=== PATIENT | male | born 1965 | race American Indian/Alaskan Native ===

== ENCOUNTER 2019-06-10 10:23 | Inpatient (IN) | payer OTHER ==
[2019-06-10] MEDS ORDERED: SODIUM CHLORIDE 0.9% 1000 ML IV SOLN IV ONE (11:43)
[2019-06-10] MEDS ORDERED: MORPHINE 4 MG/1 ML INJ IV ONE (11:51)
[2019-06-10] MEDS ORDERED: ONDANSETRON 4 MG/2 ML INJ IV ONE (11:51)
--- NOTE | 2019-06-10 12:22 | Emergency Department Report ---
ED Extremity Problem HPI - General Chief complaint: Extremity Injury, Lower Stated complaint: LT FOOT ULCER/SWELLING Time Seen by Provider: 06/10/19 11:42 Source: patient Mode of arrival: Ambulatory Limitations: No Limitations - History of Present Illness Initial comments: 53-year-old -[place] male presents to the emergency room for wound of his left foot that started 2 months ago. Patient reports that he has gotten better and now it is worse again in the last few days. Patient states that he is a diabetic but does not have a primary care provider and has been just going to the pharmacy getting his insulin 70/30. Patient reports that he takes 30 units in a.m. and 20 units at night. Patient reports he does not have a primary care provider currently on no other medications. Patient denies any nausea vomiting but admits to low-grade fever and pain at 7 out of 10. Patient denies any chest pain shortness of breath. MD Complaint: extremity pain - Related Data Allergies Allergy/AdvReac Type Severity Reaction Status Date / Time No Known Allergies Allergy Unverified 06/10/19 10:24 ED Review of Systems ROS: Stated complaint: LT FOOT ULCER/SWELLING Other details as noted in HPI ED Past Medical Hx - Past Medical History Hx Diabetes: Yes - Social History Smoking Status: Never Smoker Substance Use Type: None ED Physical Exam - General Limitations: No Limitations General appearance: alert, in no apparent distress - Head Head exam: Present: atraumatic, normocephalic - Eye Eye exam: Present: normal appearance - ENT ENT exam: Present: mucous membranes moist ED Course Vital Signs 06/10/19 06/10/19 10:29 12:32 Temperature 99.6 F 98.2 F Pulse Rate 100 H 104 H Respiratory 20 17 Rate Blood Pressure 161/96 Blood Pressure 174/101 [Left] O2 Sat by Pulse 96 100 Oximetry ED Medical Decision Making - Lab Data Result diagrams: 06/10/19 11:43 06/10/19 11:42 Laboratory Tests 06/10/19 06/10/19 06/10/19 11:42 11:43 14:19 WBC 11.5 H RBC 4.24 Hgb 13.0 Hct 36.7 MCV 87 MCH 31 MCHC 35 H RDW 12.8 L Plt Count 310 Lymph % (Auto) 14.9 Blackford % (Auto) 7.2 Eos % (Auto) 1.0 Baso % (Auto) 0.7 Lymph # 1.7 Blackford # 0.8 Eos # 0.1 Baso # 0.1 Seg Neutrophils % 76.2 H Seg Neutrophils # 8.7 H ESR 74 Sodium 133 L Potassium 4.4 Chloride 94.1 L Carbon Dioxide 23 Anion Gap 20 BUN 14 Creatinine 0.9 Estimated GFR > 60 BUN/Creatinine Ratio 16 Glucose 313 H Lactic Acid 1.40 Calcium 9.3 Total Bilirubin 0.80 AST 21 ALT 21 Alkaline Phosphatase 105 Total Protein 7.0 Albumin 3.4 L Albumin/Globulin Ratio 0.9 - Radiology Data Radiology results: report reviewed Patient: FLACO WILDER MR#: [id number] : 1965 Acct:[id number] Age/Sex: 53 / M ADM Date: 06/10/19 Loc: ED Attending Dr: Ordering Physician: PIERRE KIM Date of Service: 06/10/19 Procedure(s): XR foot 3+V LT Accession Number(s): [id number] cc: PIERRE KIM Fluoro Time In Minutes: LEFT FOOT 3 VIEWS INDICATION / CLINICAL INFORMATION: Diabetic wound of left foot. COMPARISON: None available. FINDINGS: BONES and JOINT(S): No acute fracture or subluxation. 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 No destructive bony changes are identified. SOFT TISSUES: Wounds are seen along the first and fifth toes with associated edema. There is mild edema dorsally along the foot. ADDITIONAL FINDINGS: None. IMPRESSION: Left foot findings as above without radiographic evidence of osteomyelitis. Signer Name: Chuck Small MD Signed: 06/10/2019 12:21 PM Workstation Name: [id number] Transcribed By: BLANCO Dictated By: Chuck Small MD Electronically Authenticated By: Chuck Small MD Signed Date/Time: 06/10/19 1221 DD/ 1220 TD/TT: - Medical Decision Making 53-year-old -[place] male presents to the emergency room for wound of his left foot that started 2 months ago. Patient reports that he has gotten better and now it is worse again in the last few days. Patient states that he is a diabetic but does not have a primary care provider and has been just going to the pharmacy getting his insulin 70/30. Patient reports that he takes 30 units in a.m. and 20 units at night. Patient reports he does not have a primary care provider currently on no other medications. Patient denies any nausea vomiting but admits to low-grade fever and pain at 7 out of 10. Patient denies any chest pain shortness of breath. Sepsis protocol has been placed. Antibiotics were initiated along with IV resuscitation X-ray of left foot Spoke to Dr. Kaplan supervising physician came to bedside to evaluate patient. Discussed case with Dr. Tinsley for admission criteria Discussed case with Dr. Dai general surgeon she recommends patient to be admitted for debridement antibiotic therapy diabetes control Critical care attestation.: If time is entered above; I have spent that time in minutes in the direct care of this critically ill patient, excluding procedure time. ED Disposition Clinical Impression: Diabetic foot infection, Peripheral neuropathy Diabetic foot ulcers Qualifiers: Diabetic foot ulcer location: toe Diabetes mellitus type: type 2 Laterality: left Non-pressure ulcer stage: unspecified non-pressure ulcer stage Qualified Code(s): E11.621 - Type 2 diabetes mellitus with foot ulcer; L97.529 - Non- pressure chronic ulcer of other part of left foot with unspecified severity Hypertension Qualifiers: Hypertension type: essential hypertension Qualified Code(s): I10 - Essential (primary) hypertension Uncontrolled diabetes mellitus Qualifiers: Diabetes mellitus type: type 2 Glycemic state: with hyperglycemia Qualified Code(s): E11.65 - Type 2 diabetes mellitus with hyperglycemia Hyperglycemia due to type 2 diabetes mellitus Qualifiers: Diabetes mellitus prison insulin use: with prison use Qualified Code(s): E11.65 - Type 2 diabetes mellitus with hyperglycemia; Z79.4 - termite exterminator (current) use of insulin Disposition: OP ADMIT IP TO THIS HOSP Is pt being admited?: Yes Does the pt Need Aspirin: Yes Condition: Stable Instructions: Diabetes Mellitus Type 2 in Adults (ED), Hypertension (ED)
--- NOTE | 2019-06-10 12:26 | XRay Report ---
LEFT FOOT 3 VIEWS INDICATION / CLINICAL INFORMATION: Diabetic wound of left foot. COMPARISON: None available. FINDINGS: BONES and JOINT(S): No acute fracture or subluxation. Mild osteoarthritis is noted along the mid foot . No destructive bony changes are identified. SOFT TISSUES: Wounds are seen along the first and fifth toes with associated edema. There is mild ingris ma dorsally along the foot. ADDITIONAL FINDINGS: None. IMPRESSION: Left foot findings as above without radiographic evidence of osteomyelitis. Signer Name: Chuck Small MD Signed: 06/10/2019 12:21 PM Workstation Name: [id number]
[2019-06-10 12:40] LABS: Basophils # (Auto) 0.1 K/mm3 (0.0-0.1); Basophils % (Auto) 0.7 % (0.0-1.8); Eosinophils # (Auto) 0.1 K/mm3 (0.0-0.4); Hematocrit 36.7 % (35.5-45.6); Lymphocytes # (Auto) 1.7 K/mm3 (1.2-5.4); Lymphocytes % (Auto) 14.9 % (13.4-35.0); Mean Corpuscular HGB Conc 35 % (32-34); Mean Corpuscular Volume 87 fl (84-94); Monocytes # (Auto) 0.8 K/mm3 (0.0-0.8); Monocytes % (Auto) 7.2 % (0.0-7.3); Platelet Count 310 K/mm3 (140-440); Red Blood Count 4.24 M/mm3 (3.65-5.03); Red Cell Distribution Width 12.8 % (13.2-15.2)
[2019-06-10 12:53] LABS: Alanine Aminotransferase 21 units/L (7-56); Albumin 3.4 g/dL (3.9-5); BUN/Creatinine Ratio 16; Blood Urea Nitrogen 14 mg/dL (9-20); Calcium 9.3 mg/dL (8.4-10.2); Hemolysis Index 69
[2019-06-10 13:07] LABS: Erythrocyte Sedimentation Rate 74 mm/Hr (0-20)
--- NOTE | 2019-06-10 14:25 | Event Note ---
Date of service: 06/10/19 Face to Face: For this encounter I have reviewed the PA/RECONCILIATION MACHINE OPERATOR documentation, treatment plan, medical decision making, and I had face to face time with this patient. Diabetic foot infection Admit to hospital for further management
[2019-06-10] MEDS ORDERED: ALBUTEROL 2.5 MG/3 ML NEBU IH PRN (15:01)
--- NOTE | 2019-06-10 15:01 | History and Physical Report ---
History of Present Illness Chief complaint: My left foot has been giving me problems History of present illness: 53 YO Male with Obesity,DM, HTN, Medication Noncompliance presents to ED for evaluation. Patient states that he has experienced pain and swelling to his left foot and lower leg over the past 2 months with worsening symptoms over the past week and acutely worsening symptoms over the past 2 days. Patient states his pain is currently 7/10, constant, worse with ambulation, associated with swelling, redness, and tenderness. Patient is lost to outpatient follow-up and is noncompliant with medication. Patient transported to [facility] via private vehicle for further evaluation and care. Patient seen and evaluated in the emergency department and found to have systemic inflammatory response syndrome, left lower extremity cellulitis, and suspected diabetic foot infection, and hyponatremia. Patient treated with empiric IV antibiotic therapy. Surgery team consulted in ED. Patient placed in observation status and admitted to surgical floor. Patient pending wound debridement as per surgical team. Patient denies fever, chills, chest pain, palpitations, productive cough, skin rash, hemoptysis, recent ill contacts. No prior admission for review. No medication listed at time of admission for reconciliation. Past History Past Medical History: diabetes, hypertension, other (See HPI) Past Surgical History: Other (Left foot debridement) Social history: single. denies: smoking, alcohol abuse, prescription drug abuse Family history: diabetes, hypertension Medications and Allergies Allergies Allergy/AdvReac Type Severity Reaction Status Date / Time No Known Allergies Allergy Unverified 06/10/19 10:24 Home Medications Medication Instructions Recorded Confirmed Last Taken Type NovoLIN 70/30 20 units SQ QPM 06/10/19 06/10/19 Unknown History NovoLIN 70/30 30 units SQ QAM 06/10/19 06/10/19 Unknown History Review of Systems Constitutional: no weight loss, no weight gain, no fever, no chills Ears, nose, mouth and throat: no ear pain, no ear discharge, no tinnitis, no decreased hearing, no nose pain, no nasal congestion Cardiovascular: no chest pain, no orthopnea, no palpitations, no rapid/irregular heart beat Respiratory: no cough, no cough with sputum, no hemoptysis, no shortness of breath Gastrointestinal: no nausea, no vomiting, no diarrhea, no constipation Genitourinary Male: no hematuria, no flank pain, no discharge, no urinary frequency, no urinary hesitancy Rectal: no pain, no incontinence, no bleeding Musculoskeletal: no neck pain, no shooting arm pain, no arm numbness/tingling, no low back pain, no shooting leg pain Integumentary: no rash, no pruritis, no redness, no sores, no wounds Neurological: no paralysis, no weakness, no parathesias, no numbness, no tingling, no seizures Psychiatric: no anxiety, no memory loss, no change in sleep habits, no insomnia, no hypersomnia, no change in appetite, no change in libido (Hospitalist) Endocrine: no cold intolerance, no heat intolerance, no polyphagia, no excessive thirst, no polydipsia, no nocturia Hematologic/Lymphatic: no easy bruising, no easy bleeding, no lymphadenopathy, no lymphedema Allergic/Immunologic: no urticaria, no allergic rhinitis, no anaphylaxis (Call me about this is totally fine just) Exam - Constitutional Vitals: Temp Pulse Resp BP Pulse Ox 98.2 F 104 H 17 174/101 100 06/10/19 12:32 06/10/19 12:32 06/10/19 12:32 06/10/19 12:32 06/10/19 12:32 General appearance: Present: mild distress, obese - EENT Eyes: Present: PERRL ENT: hearing intact, clear oral mucosa - Neck Neck: Present: supple, normal ROM - Respiratory Respiratory effort: normal Respiratory: bilateral: CTA - Cardiovascular Heart Sounds: Present: S1 & S2. Absent: rub, click - Extremities Extremities: pulses symmetrical Extremity abnormal: edema, ulceration, erythema Peripheral Pulses: within normal limits - Abdominal General gastrointestinal: Present: soft, non-tender, non-distended, normal bowel sounds Male genitourinary: Present: normal - Integumentary Integumentary: Present: clear, warm, dry - Musculoskeletal Musculoskeletal: gait normal, strength equal bilaterally - Psychiatric Psychiatric: appropriate mood/affect, intact judgment & insight - Neurologic Neurologic: CNII-XII intact, moves all extremities Results - Labs CBC & Chem 7: 06/10/19 11:43 06/10/19 11:42 Labs: Abnormal lab results 06/10/19 06/10/19 Range/Units 11:42 11:43 WBC 11.5 H (4.5-11.0) K/mm3 MCHC 35 H (32-34) % RDW 12.8 L (13.2-15.2) % Seg Neutrophils % 76.2 H (40.0-70.0) % Seg Neutrophils # 8.7 H (1.8-7.7) K/mm3 Sodium 133 L (137-145) mmol/L Chloride 94.1 L (98-107) mmol/L Glucose 313 H (75-100) mg/dL Albumin 3.4 L (3.9-5) g/dL Assessment and Plan - Patient Problems (1) Diabetic foot infection Current Visit: Yes Status: Acute Plan to address problem: IV antibiotic therapy with Zosyn and vancomycin, wound care, surgery team consulted, supportive care. (2) Noncompliance Current Visit: Yes Status: Acute Plan to address problem: Patient counseled regarding compliance with diabetic diet, medication, and wound care. Patient acknowledges understanding of risk of worsening symptoms limb loss, organ failure and subsequent if patient continues further noncompliance. (3) Hypertension Current Visit: Yes Status: Acute Qualifiers: Hypertension type: essential hypertension Qualified Code(s): I10 - Essential (primary) hypertension Plan to address problem: Monitor blood pressure every shift, supportive care, continue medical management. (4) Cellulitis Current Visit: Yes Status: Acute Qualifiers: Site of cellulitis: extremity Site of cellulitis of extremity: lower extremity Laterality: left Qualified Code(s): L03.116 - Cellulitis of left lower limb Plan to address problem: X-ray, IV fluid resuscitation therapy, IV antibiotic therapy, CBC, wound care, wound culture. (5) SIRS (systemic inflammatory response syndrome) Current Visit: Yes Status: Acute Plan to address problem: IV antibiotic therapy, CBC, CMP, IV fluid resuscitation therapy, chest x-ray, urinalysis (6) DVT prophylaxis Current Visit: Yes Status: Acute Plan to address problem: Supportive care, prophylactic heparin, SCD to lower extremities while in bed.
[2019-06-10] MEDS ORDERED: ASPIRIN 81 MG TAB CHEW PO ONE (15:08)
[2019-06-10] MEDS ORDERED: VANCOMYCIN 1,750 MG in SODIUM CHLORIDE 0.9% 500 ML 500 ML IV ONE (15:13)
--- NOTE | 2019-06-10 15:20 | Consultation ---
History of Present Illness Consult date: 06/10/19 Reason for consult: other (Left toe ulcer) Chief complaint: Left toe ulcer - History of present illness History of present illness: 53-year-old male with a past medical history of diabetes on insulin for the last 20 years presents to the emergency room with 2 weeks of worsening redness swelling of his left foot along with worsening of a known wound of his left pinky toe. The patient states that last month he was seen by a helicopter repairer in [place] for calluses near his great toe. He states that the calluses were operated on and at that time his pinky toe wound did not appear advanced. Since then, there is been more drainage and a foul odor from the pinky toe. He states that he has had a wound on his forefoot on the left side before which healed with local wound care. He denies fevers, chills, chest pain, shortness of breath. He admits to neuropathy. Past History Past Medical History: diabetes Past Surgical History: Other (Left ear surgery, debridement of left foot wounds) Social history: no significant social history, Family history: no significant family history Medications and Allergies Allergies Allergy/AdvReac Type Severity Reaction Status Date / Time No Known Allergies Allergy Unverified 06/10/19 10:24 Active Meds: Active Medications Acetaminophen (Tylenol) 650 mg PO Q4H PRN PRN Reason: Pain MILD(1-3)/Fever >100.5/TEAGUE Albuterol (Proventil) 2.5 mg IH Q4HRT PRN PRN Reason: Shortness Of Breath Sodium Chloride (Nacl 0.9% 1000 Ml) 1,000 mls @ 100 mls/hr IV DIRECT MELLISSA Vancomycin HCl 1,750 mg/ (Sodium Chloride) 535 mls @ 333 mls/hr IV ONCE ONE; Protocol Stop: 06/10/19 16:49 Piperacillin Sod/Tazobactam Sod (Zosyn/Ns 4.5gm/100ml) 4.5 gm in 100 mls @ 200 mls/hr IV Q8HR MELLISSA; Protocol Sodium Chloride (Sodium Chloride Flush Syringe 10 Ml) 10 ml IV BID MELLISSA Sodium Chloride (Sodium Chloride Flush Syringe 10 Ml) 10 ml IV PRN PRN PRN Reason: LINE FLUSH Review of Systems All systems: negative (10 point review of systems was performed and negative except for that listed in HPI) Exam Vital Signs Temp Pulse Resp BP Pulse Ox 99.6 F 100 H 20 161/96 96 06/10/19 10:29 06/10/19 10:29 06/10/19 10:06/10/19 10:06/10/19 10:29 Narrative exam: General: Awake, alert, oriented x3. No apparent distress ENT: No scleral icterus or conjunctival pallor CV: S1, S2 present Respiratory: No audible wheezes Extremities: Right lower extremity without clubbing, cyanosis, edema, wounds. Left foot with cellulitis of the forefoot extending to the ankle. There is 4+ pitting edema. The patient senses touch however cannot differentiate between sh john and dull. No crepitus. No tenderness to palpation. Distal pulses cannot be palpated due to the edema. There is desquamating skin on the plantar aspect of the foot near the toes. This was easily peeled off and removed. The underlying tissue is healthy, red. There is an extensive ulcer of the pinky toe on the left. The wound bed has minimal slough. Although bone is not visible, it is palpable. The wounds were covered with 4 x 4 gauze and ABD pad, and wrapped with Kerlix. Results - Labs 06/10/19 11:43 06/10/19 11:42 Abnormal lab results 06/10/19 06/10/19 Range/Units 11:42 11:43 WBC 11.5 H (4.5-11.0) K/mm3 MCHC 35 H (32-34) % RDW 12.8 L (13.2-15.2) % Seg Neutrophils % 76.2 H (40.0-70.0) % Seg Neutrophils # 8.7 H (1.8-7.7) K/mm3 Sodium 133 L (137-145) mmol/L Chloride 94.1 L (98-107) mmol/L Glucose 313 H (75-100) mg/dL Albumin 3.4 L (3.9-5) g/dL Diabetes panel 06/10/19 Range/Units 11:42 Sodium 133 L (137-145) mmol/L Potassium 4.4 (3.6-5.0) mmol/L Chloride 94.1 L (98-107) mmol/L Carbon Dioxide 23 (22-30) mmol/L BUN 14 (9-20) mg/dL Creatinine 0.9 (0.8-1.5) mg/dL Glucose 313 H (75-100) mg/dL Calcium 9.3 (8.4-10.2) mg/dL AST 21 (5-40) units/L ALT 21 (7-56) units/L Alkaline Phosphatase 105 (35-129) units/L Total Protein 7.0 (6.3-8.2) g/dL Albumin 3.4 L (3.9-5) g/dL Calcium panel 06/10/19 Range/Units 11:42 Calcium 9.3 (8.4-10.2) mg/dL Albumin 3.4 L (3.9-5) g/dL Pituitary panel 06/10/19 Range/Units 11:42 Sodium 133 L (137-145) mmol/L Potassium 4.4 (3.6-5.0) mmol/L Chloride 94.1 L (98-107) mmol/L Carbon Dioxide 23 (22-30) mmol/L BUN 14 (9-20) mg/dL Creatinine 0.9 (0.8-1.5) mg/dL Glucose 313 H (75-100) mg/dL Calcium 9.3 (8.4-10.2) mg/dL Adrenal panel 06/10/19 Range/Units 11:42 Sodium 133 L (137-145) mmol/L Potassium 4.4 (3.6-5.0) mmol/L Chloride 94.1 L (98-107) mmol/L Carbon Dioxide 23 (22-30) mmol/L BUN 14 (9-20) mg/dL Creatinine 0.9 (0.8-1.5) mg/dL Glucose 313 H (75-100) mg/dL Calcium 9.3 (8.4-10.2) mg/dL Total Bilirubin 0.80 (0.1-1.2) mg/dL AST 21 (5-40) units/L ALT 21 (7-56) units/L Alkaline Phosphatase 105 (35-129) units/L Total Protein 7.0 (6.3-8.2) g/dL Albumin 3.4 L (3.9-5) g/dL - Imaging Additional studies: X-ray left foot Assessment and Plan 53-year-old male with 1. Infected diabetic wound of left pinky toe 2. Diabetes 3. Cellulitis of left foot 4. Sepsis secondary to #1 Plan: 1. diabetic diet 2. IVF 3. IV abx - zosyn and vanco 4. obtain wound cultures 5. wound care consult 6. arterial u/s of LLE 7. MRI LLE to r/o osteo 8. local wound care 9. offloading I had a detailed discussion with the patient and his at the bedside regarding his condition. I explained that based on the findings of the above imaging and his clinical course, there is a possibility that he may need further debridement of the wound versus amputation of his toe. He understands. Thank you for the consultation, please call with questions or concerns.
[2019-06-10] MEDS ORDERED: VANCOMYCIN PHARMACY TO DOSE IV SCH (16:00)
[2019-06-10] MEDS ORDERED: VANCOMYCIN 2,000 MG in SODIUM CHLORIDE 0.9% 500 ML 500 ML IV ONE (16:00)
[2019-06-10] MEDS ORDERED: ASPIRIN 81 MG TAB CHEW ONE (18:04)
--- NOTE | 2019-06-10 18:12 | Magnetic Resonance Report ---
MRI left foot with and without contrast HISTORY: diabetic toe ulcer, r/o osteo. TECHNIQUE: 20 mL of MultiHance was given intravenously. COMPARISON: Left foot radiographs from today FINDINGS: There is abnormal edema and low T1 signal involving the majority of the little toe extendi ng nearly to the base of the proximal phalanx. There is also mild edema involving the distal one nae f of the fourth toe proximal phalanx. There is soft tissue swelling about the forefoot especially wit hin the deep musculature and along the dorsum. No organized collection is identified to suggest absce ss formation. IMPRESSION: Findings of osteomyelitis and probable cellulitis as outlined above. No abscess identifi ed. Signer Name: Hai Rodriguez MD Signed: 06/10/2019 6:07 PM Workstation Name: [id number]
--- NOTE | 2019-06-10 18:46 | Vascular Lab Report ---
DUPLEX DOPPLER LOWER EXTREMITY ARTERIAL, LEFT INDICATION: diabetic toe wound. TECHNIQUE: Arterial duplex examination of the left lower extremity performed using B-mode, color flow and spectr al Doppler assessment. FINDINGS: LEFT: Common Femoral Artery: PSV 168 cm/sec. Triphasic waveform. Proximal SFA: PSV 156 cm/sec. Triphasic waveform. Mid SFA: PSV 113 cm/sec. Triphasic waveform. Distal SFA: PSV 100 cm/sec. Triphasic waveform. Popliteal artery: PSV 112 cm/sec. Biphasic waveform. Posterior tibial artery: PSV 141 cm/sec. Biphasic waveform. Dorsalis Pedis Artery: PSV 155 cm/sec. Biphasic waveform. IMPRESSION: 1. Mild atherosclerotic disease in the left lower extremity with stenosis in the distal SFA where the re is a transition from triphasic to biphasic waveforms. Doppler Waveform: * Triphasic is normal. * Biphasic is abnormal if clear transition from triphasic signal along vascular tree. * Monophasic is abnormal. Signer Name: Hai Rodriguez MD Signed: 06/10/2019 6:42 PM [id number]
[2019-06-10] MEDS: PIPERACIL/TAZOBACTA 4.5/NS 100 4.5 GM/100 ML VIAL IV SCH (22:47)
[2019-06-10] MEDS: HEPARIN 5,000 UNIT/1 ML VIAL SUB-Q SCH (22:49)
[2019-06-11] MEDS: SODIUM CHLORIDE 0.9% 1000 ML 1,000 ML IV SCH ×2 (00:44→20:20)
[2019-06-11] MEDS: VANCOMYCIN 1,750 MG in SODIUM CHLORIDE 0.9% 500 ML 500 ML IV SCH ×2 (04:55→15:42)
[2019-06-11] MEDS: PIPERACIL/TAZOBACTA 4.5/NS 100 4.5 GM/100 ML VIAL IV SCH ×2 (06:24→13:50)
[2019-06-11 06:34] LABS: Basophils % (Auto) 0.2 % (0.0-1.8); Eosinophils # (Auto) 0.1 K/mm3 (0.0-0.4); Eosinophils % (Auto) 1.5 % (0.0-4.3); Hematocrit 34.8 % (35.5-45.6); Lymphocytes # (Auto) 1.4 K/mm3 (1.2-5.4); Lymphocytes % (Auto) 17.5 % (13.4-35.0); Mean Corpuscular HGB Conc 34 % (32-34); Mean Corpuscular Volume 88 fl (84-94); Monocytes # (Auto) 0.6 K/mm3 (0.0-0.8); Monocytes % (Auto) 7.7 % (0.0-7.3); Platelet Count 300 K/mm3 (140-440); Red Blood Count 3.95 M/mm3 (3.65-5.03)
[2019-06-11 07:00] LABS: BUN/Creatinine Ratio 11; Blood Urea Nitrogen 10 mg/dL (9-20); Calcium 8.6 mg/dL (8.4-10.2); Hemolysis Index 7; Prealbumin 0.075 g/L (0.200-0.400)
[2019-06-11] MEDS: HEPARIN 5,000 UNIT/1 ML VIAL SUB-Q SCH ×2 (10:42→22:01)
--- NOTE | 2019-06-11 10:50 | Progress Note ---
Assessment and Plan 53-year-old male with 1. Infected diabetic wound of left pinky toe 2. Diabetes 3. Cellulitis of left foot 4. Sepsis secondary to #1 5. protein calorie malnutrition MRI LLE - osteomyelitis of 5th toe. Cellulitis. No abscess Arterial u/s LLE - mild atherosclerotic disease Plan: 1. diabetic diet 2. IVF 3. IV abx, ID consulted - Discussed with Dr. Terry 4. obtain wound cultures 5. wound care consult 6. HbAIC 7. livestock producer consult 8. local wound care - orders placed 9. offloading 10. Discussed test results with patient. Explained the options of continued aggressive wound care and lobsterman IV abx vs amputation of toe. Patient would like to proceed with amputation. Dr. Little consulted - will see patient today. Thank you for the consultation, please call with questions or concerns. Subjective Date of service: 06/11/19 Narrative: Pt seen and examined. No acute complaints. Afebrile. No pain. Objective Vital Signs - 12hr 06/11/19 06/11/19 06/11/19 00:34 04:51 06:37 Temperature 99.3 F 99.8 F H Pulse Rate 96 H 92 H Respiratory 18 17 18 Rate Blood Pressure 119/70 128/85 Blood Pressure [Left] O2 Sat by Pulse 93 93 Oximetry 06/11/19 07:40 Temperature 99.4 F Pulse Rate 100 H Respiratory 20 Rate Blood Pressure Blood Pressure 151/82 [Left] O2 Sat by Pulse 95 Oximetry - General physical appearance Narrative Exam: Gen: AAOx3. NAD CV: s1, S2+ resp: even and unlabored Ext: LLE with dressing c/d/i. RLE without c/c/e - Labs 06/11/19 06:01 06/11/19 06:01 Diabetes panel 06/10/19 06/11/19 Range/Units 11:42 06:01 Sodium 133 L 134 L (137-145) mmol/L Potassium 4.4 3.9 (3.6-5.0) mmol/L Chloride 94.1 L 100.1 (98-107) mmol/L Carbon Dioxide 23 21 L (22-30) mmol/L BUN 14 10 (9-20) mg/dL Creatinine 0.9 0.9 (0.8-1.5) mg/dL Glucose 313 H 280 H (75-100) mg/dL Calcium 9.3 8.6 (8.4-10.2) mg/dL AST 21 (5-40) units/L ALT 21 (7-56) units/L Alkaline Phosphatase 105 (35-129) units/L Total Protein 7.0 (6.3-8.2) g/dL Albumin 3.4 L (3.9-5) g/dL Calcium panel 06/10/19 06/11/19 Range/Units 11:42 06:01 Calcium 9.3 8.6 (8.4-10.2) mg/dL Albumin 3.4 L (3.9-5) g/dL Pituitary panel 06/10/19 06/11/19 Range/Units 11:42 06:01 Sodium 133 L 134 L (137-145) mmol/L Potassium 4.4 3.9 (3.6-5.0) mmol/L Chloride 94.1 L 100.1 (98-107) mmol/L Carbon Dioxide 23 21 L (22-30) mmol/L BUN 14 10 (9-20) mg/dL Creatinine 0.9 0.9 (0.8-1.5) mg/dL Glucose 313 H 280 H (75-100) mg/dL Calcium 9.3 8.6 (8.4-10.2) mg/dL Adrenal panel 06/10/19 06/11/19 Range/Units 11:42 06:01 Sodium 133 L 134 L (137-145) mmol/L Potassium 4.4 3.9 (3.6-5.0) mmol/L Chloride 94.1 L 100.1 (98-107) mmol/L Carbon Dioxide 23 21 L (22-30) mmol/L BUN 14 10 (9-20) mg/dL Creatinine 0.9 0.9 (0.8-1.5) mg/dL Glucose 313 H 280 H (75-100) mg/dL Calcium 9.3 8.6 (8.4-10.2) mg/dL Total Bilirubin 0.80 (0.1-1.2) mg/dL AST 21 (5-40) units/L ALT 21 (7-56) units/L Alkaline Phosphatase 105 (35-129) units/L Total Protein 7.0 (6.3-8.2) g/dL Albumin 3.4 L (3.9-5) g/dL
[2019-06-11] MEDS ORDERED: FLU VACC QUAD 2019-20 (3 YR UP)/PF 60 MCG/0.5 ML SYRINGE IM ONE (12:00)
--- NOTE | 2019-06-11 13:34 | Progress Note ---
Assessment and Plan Assessment and plan: Left lower extremity fifth MT infected diabetic wound/osteomyelitis. Continue wound care. IV antibiotics per ID. MRI confirms osteomyelitis of fifth toe. Podiatry consulted for possible amputation. Left lower extremity cellulitis. As above. Sepsis. Continue IV antibiotics as above. Follow-up cultures. Diabetes mellitus type 2, uncontrolled. Check hemoglobin A1c. Dietitian consult. History Interval history: No new issues overnight Hospitalist Physical - Constitutional Vitals: Temp Pulse Resp BP Pulse Ox 99.0 F 93 H 20 145/85 96 06/11/19 11:42 06/11/19 11:42 06/11/19 11:42 06/11/19 11:42 06/11/19 11:42 General appearance: Present: mild distress, obese - EENT Eyes: Present: PERRL, EOM intact ENT: hearing intact, clear oral mucosa, dentition normal - Neck Neck: Present: supple, normal ROM - Respiratory Respiratory effort: normal Respiratory: bilateral: CTA - Cardiovascular Rhythm: regular Heart Sounds: Present: S1 & S2. Absent: gallop, rub - Extremities Extremities: no ischemia, No edema, Full ROM - Abdominal General gastrointestinal: soft, non-tender, non-distended, normal bowel sounds - Integumentary Integumentary: Present: clear, warm, dry - Neurologic Neurologic: CNII-XII intact, moves all extremities Results - Labs CBC & Chem 7: 06/11/19 06:01 06/11/19 06:01 Labs: Laboratory Last Values WBC 7.8 K/mm3 (4.5-11.0) 06/11/19 06: RBC 3.95 M/mm3 (3.65-5.03) 06/11/19 06:01 Hgb 12.0 gm/dl (11.8-15.2) 06/11/19 06:01 Hct 34.8 % (35.5-45.6) L 06/11/19 06:01 MCV 88 fl (84-94) 06/11/19 06:01 MCH 30 pg (28-32) 06/11/19 06:01 MCHC 34 % (32-34) 06/11/19 06:01 RDW 13.0 % (13.2-15.2) L 06/11/19 06:01 Plt Count 300 K/mm3 (140-440) 06/11/19 06:01 Lymph % (Auto) 17.5 % (13.4-35.0) 06/11/19 06:01 Nobles % (Auto) 7.7 % (0.0-7.3) H 06/11/19 06:01 Eos % (Auto) 1.5 % (0.0-4.3) 06/11/19 06:01 Baso % (Auto) 0.2 % (0.0-1.8) 06/11/19 06:01 Lymph # 1.4 K/mm3 (1.2-5.4) 06/11/19 06:01 Nobles # 0.6 K/mm3 (0.0-0.8) 06/11/19 06:01 Eos # 0.1 K/mm3 (0.0-0.4) 06/11/19 06:01 Baso # 0.0 K/mm3 (0.0-0.1) 06/11/19 06:01 Seg Neutrophils % 73.1 % (40.0-70.0) H 06/11/19 06:01 Seg Neutrophils # 5.7 K/mm3 (1.8-7.7) 06/11/19 06:01 ESR 74 mm/Hr (0-20) 06/10/19 11:43 Sodium 134 mmol/L (137-145) L 06/11/19 06:01 Potassium 3.9 mmol/L (3.6-5.0) 06/11/19 06:01 Chloride 100.1 mmol/L (98-107) 06/11/19 06:01 Carbon Dioxide 21 mmol/L (22-30) L 06/11/19 06:01 Anion Gap 17 mmol/L 06/11/19 06:01 BUN 10 mg/dL (9-20) 06/11/19 06:01 Creatinine 0.9 mg/dL (0.8-1.5) 06/11/19 06:01 Estimated GFR > 60 ml/min 06/11/19 06:01 BUN/Creatinine Ratio 11 % 06/11/19 06:01 Glucose 280 mg/dL (75-100) H 06/11/19 06:01 POC Glucose 275 (70-105) H 06/11/19 11:49 Lactic Acid 1.40 mmol/L (0.7-2.0) 06/10/19 14:19 Calcium 8.6 mg/dL (8.4-10.2) 06/11/19 06:01 Total Bilirubin 0.80 mg/dL (0.1-1.2) 06/10/19 11:42 AST 21 units/L (5-40) 06/10/19 11:42 ALT 21 units/L (7-56) 06/10/19 11:42 Alkaline Phosphatase 105 units/L (35-129) 06/10/19 11:42 Total Protein 7.0 g/dL (6.3-8.2) 06/10/19 11:42 Albumin 3.4 g/dL (3.9-5) L 06/10/19 11:42 Albumin/Globulin Ratio 0.9 % 06/10/19 11:42 Prealbumin 0.075 g/L (0.200-0.400) L 06/11/19 06:01 Active Medications - Current Medications Current Medications: Generic Name Dose Route Start Last Admin Trade Name Freq PRN Reason Stop Dose Admin Acetaminophen 650 mg 06/10/19 15:01 Tylenol PO Q4H PRN Pain MILD(1-3)/Fever >100.5/TEAGUE Albuterol 2.5 mg 06/10/19 15:01 Proventil IH Q4HRT PRN Shortness Of Breath Heparin Sodium (Porcine) 5,000 unit 06/10/19 22:00 06/11/19 10:42 Heparin SUB-Q 5,000 unit Q12HR MELLISSA Administration Sodium Chloride 1,000 mls @ 100 mls/hr 06/10/19 15:15 06/11/19 00:44 Nacl 0.9% 1000 Ml IV 100 mls/hr DIRECT MELLISSA Administration Piperacillin Sod/Tazobactam Sod 4.5 gm in 100 mls @ 200 mls/hr 06/10/19 22:00 06/11/19 06:24 Zosyn/Ns 4.5gm/100ml IV 200 mls/hr Q8HR MELLISSA Administration Protocol Vancomycin HCl 1,750 mg/ 535 mls @ 333.333 mls/hr 06/11/19 04:00 06/11/19 04:55 Sodium Chloride IV 333.333 mls/hr Q12H MELLISSA Administration Sodium Chloride 10 ml 06/10/19 22:00 06/11/19 10:45 Sodium Chloride Flush Syringe 10 Ml IV Not Given BID MELLISSA Sodium Chloride 10 ml 06/10/19 15:01 Sodium Chloride Flush Syringe 10 Ml IV PRN PRN LINE FLUSH
--- NOTE | 2019-06-11 13:40 | Consultation ---
History of Present Illness Consult date: 06/11/19 - History of present illness History of present illness: 53 yo diabetic male with left 5th toe ulcer with infection. He does not smoke. Past History Past Medical History: diabetes, hypertension, other (See HPI) Past Surgical History: Other (Left foot debridement) Social history: single. denies: smoking, alcohol abuse, prescription drug abuse Family history: diabetes, hypertension Medications and Allergies Allergies Allergy/AdvReac Type Severity Reaction Status Date / Time No Known Allergies Allergy Unverified 06/10/19 10:24 Home Medications Medication Instructions Recorded Confirmed Last Taken Type NovoLIN 70/30 20 units SQ QPM 06/10/19 06/10/19 Unknown History NovoLIN 70/30 30 units SQ QAM 06/10/19 06/10/19 Unknown History Active Meds: Active Medications Acetaminophen (Tylenol) 650 mg PO Q4H PRN PRN Reason: Pain MILD(1-3)/Fever >100.5/[place] Albuterol (Proventil) 2.5 mg IH Q4HRT PRN PRN Reason: Shortness Of Breath Heparin Sodium (Porcine) (Heparin) 5,000 unit SUB-Q Q12HR [facility] Last Admin: 06/11/19 10:42 Dose: 5,000 unit Documented by: Sodium Chloride (Nacl 0.9% 1000 Ml) 1,000 mls @ 100 mls/hr IV DIRECT [facility] Last Admin: 06/11/19 00:44 Dose: 100 mls/hr Documented by: Piperacillin Sod/Tazobactam Sod (Zosyn/Ns 4.5gm/100ml) 4.5 gm in 100 mls @ 200 mls/hr IV Q8HR [facility]; Protocol Last Admin: 06/11/19 06:24 Dose: 200 mls/hr Documented by: Vancomycin HCl 1,750 mg/ (Sodium Chloride) 535 mls @ 333.333 mls/hr IV Q12H [facility] Last Admin: 06/11/19 04:55 Dose: 333.333 mls/hr Documented by: Sodium Chloride (Sodium Chloride Flush Syringe 10 Ml) 10 ml IV BID [facility] Last Admin: 06/11/19 10:45 Dose: Not Given Documented by: Sodium Chloride (Sodium Chloride Flush Syringe 10 Ml) 10 ml IV PRN PRN PRN Reason: LINE FLUSH Review of Systems All systems: negative (none) Exam Vital Signs Temp Pulse Resp BP Pulse Ox 99.6 F 100 H 20 161/96 96 06/10/19 10:29 06/10/19 10:29 06/10/19 10:06/10/19 10:06/10/19 10:29 - General physical appearance Positive: well developed, well nourished, no distress - Eyes Positive: PERRL, normal occular movement - ENT Positive: normal pinna, normal nares, normal mucosa, no hearing loss, no congestion - Neck Positive: no masses, no bruits, trachea midline, no venous distension - Respiratory Positive: normal expansion, normal respiratory effort, clear to auscultation - Cardiovascular Rhythm: regular Heart Sounds: Present: S1 & S2. Absent: rub, click - Extremities Extremity abnormal: other (The medial 1/2 of the left 5th toe is ulcerated with pus exuding from the ulcerated area. There is also pus exuding from the lateral base of the left 4th toe.) - Breasts Breasts: deferred - Abdomen Abdomen: Present: soft, bowel sounds normal. Absent: tender, distended Hernia: none - Genitourinary Male Genitourinary: deferred - Neurologic Neurologic: alert and oriented to time, place and person, motor strength and sensation are grossly intact - Psychiatric Psychiatric: appropriate mood/affect, intact judgment & insight Results - Labs 06/11/19 06:01 06/11/19 06:01 Abnormal lab results 06/10/19 06/11/19 06/11/19 Range/Units 18:08 06:01 06:01 Hct 34.8 L (35.5-45.6) % RDW 13.0 L (13.2-15.2) % Waldo % (Auto) 7.7 H (0.0-7.3) % Seg Neutrophils % 73.1 H (40.0-70.0) % Sodium 134 L (137-145) mmol/L Carbon Dioxide 21 L (22-30) mmol/L Glucose 280 H (75-100) mg/dL POC Glucose 273 H (70-105) Prealbumin 0.075 L (0.200-0.400) g/L 06/11/19 06/11/19 Range/Units 07:26 11:49 Hct (35.5-45.6) % RDW (13.2-15.2) % Waldo % (Auto) (0.0-7.3) % Seg Neutrophils % (40.0-70.0) % Sodium (137-145) mmol/L Carbon Dioxide (22-30) mmol/L Glucose (75-100) mg/dL POC Glucose 254 H 275 H (70-105) Prealbumin (0.200-0.400) g/L Diabetes panel 06/10/19 06/11/19 Range/Units 11:42 06:01 Sodium 134 L (137-145) mmol/L Potassium 3.9 (3.6-5.0) mmol/L Chloride 100.1 (98-107) mmol/L Carbon Dioxide 21 L (22-30) mmol/L BUN 10 (9-20) mg/dL Creatinine 0.9 (0.8-1.5) mg/dL Glucose 280 H (75-100) mg/dL Calcium 8.6 (8.4-10.2) mg/dL AST 21 (5-40) units/L Calcium panel 06/11/19 Range/Units 06:01 Calcium 8.6 (8.4-10.2) mg/dL Pituitary panel 06/11/19 Range/Units 06:01 Sodium 134 L (137-145) mmol/L Potassium 3.9 (3.6-5.0) mmol/L Chloride 100.1 (98-107) mmol/L Carbon Dioxide 21 L (22-30) mmol/L BUN 10 (9-20) mg/dL Creatinine 0.9 (0.8-1.5) mg/dL Glucose 280 H (75-100) mg/dL Calcium 8.6 (8.4-10.2) mg/dL Adrenal panel 06/10/19 06/11/19 Range/Units 11:42 06:01 Sodium 134 L (137-145) mmol/L Potassium 3.9 (3.6-5.0) mmol/L Chloride 100.1 (98-107) mmol/L Carbon Dioxide 21 L (22-30) mmol/L BUN 10 (9-20) mg/dL Creatinine 0.9 (0.8-1.5) mg/dL Glucose 280 H (75-100) mg/dL Calcium 8.6 (8.4-10.2) mg/dL AST 21 (5-40) units/L - Imaging Additional studies: MRI of LLE on 06/10/19 was c/w osteomyelitis of the left 5th and possibly left 4th toes. Arterial doppler of the LLE on 06/10/19 revealed only mild atherosclerotic disease of the LLE. Assessment and Plan - Patient Problems (1) Diabetic foot infection Current Visit: Yes Status: Acute Plan to address problem: 1) Continue Zosyn and Vancocin 2) Strict DM control 3) I will check with the OR and schedule the pt for TMA of his left 4th and 5th toes.
--- NOTE | 2019-06-11 14:57 | Consultation ---
History of Present Illness - Reason for Consult Consult date: 06/11/19 Osteomyelitis Requesting physician: LEIGH MCDONALD - History of Present Illness The patient is a 53-year-old male with diabetes mellitus type 2, associated neuropathy, hypertension, obesity had been dealing with left foot ulceration and wounds since almost March 2019. He had been following up with an outside manager managed backup services and mid April 2019 he also underwent surgery followed by oral antibiotics for about 15 days. Over the last 1 month, there has been progressive swelling and worsening of the wounds, he tried to follow-up with his manager managed backup services and got an appointment but meanwhile with significant worsening, came to the ER and was hospitalized. MRI shows evidence of osteomyelitis involving the left fifth toe and possibly the fourth toe. Denies any other systemic complaints. Denies smoking or alcohol use. Review of Systems: General: no fevers,chills or rigors HEENT: no new visual disturbance Respiratory: No cough, sputum, hemoptysis or shortness of breath Cardiovascular: No chest pain, syncope Gastrointestinal: No nausea, vomiting or diarrhea Genitourinary: No dysuria or hematuria Musculoskeletal: No new or worsening neck pain or back pain Neurologic: No headaches, seizures Hematologic: No easy bruising or bleeding Endocrine: No night sweats or acute weight loss Skin: negative for rash, jaundice Psychiatric: No suicidal or homicidal ideation Past History Past Medical History: diabetes, hypertension, other (See HPI) Past Surgical History: Other (Left foot debridement) Social history: single. denies: smoking, alcohol abuse, prescription drug abuse Family history: diabetes, hypertension Medications and Allergies Allergies Allergy/AdvReac Type Severity Reaction Status Date / Time No Known Allergies Allergy Unverified 06/10/19 10:24 Home Medications Medication Instructions Recorded Confirmed Last Taken Type NovoLIN 70/30 20 units SQ QPM 06/10/19 06/10/19 Unknown History NovoLIN 70/30 30 units SQ QAM 06/10/19 06/10/19 Unknown History Active Meds: Active Medications Acetaminophen (Tylenol) 650 mg PO Q4H PRN PRN Reason: Pain MILD(1-3)/Fever >100.5/[place] Albuterol (Proventil) 2.5 mg IH Q4HRT PRN PRN Reason: Shortness Of Breath Heparin Sodium (Porcine) (Heparin) 5,000 unit SUB-Q Q12HR [facility] Last Admin: 06/11/19 10:42 Dose: 5,000 unit Documented by: Sodium Chloride (Nacl 0.9% 1000 Ml) 1,000 mls @ 100 mls/hr IV DIRECT [facility] Last Admin: 06/11/19 00:44 Dose: 100 mls/hr Documented by: Piperacillin Sod/Tazobactam Sod (Zosyn/Ns 4.5gm/100ml) 4.5 gm in 100 mls @ 200 mls/hr IV Q8HR [facility]; Protocol Last Admin: 06/11/19 06:24 Dose: 200 mls/hr Documented by: Vancomycin HCl 1,750 mg/ (Sodium Chloride) 535 mls @ 333.333 mls/hr IV Q12H [facility] Last Admin: 06/11/19 04:55 Dose: 333.333 mls/hr Documented by: Sodium Chloride (Sodium Chloride Flush Syringe 10 Ml) 10 ml IV BID [facility] Last Admin: 06/11/19 10:45 Dose: Not Given Documented by: Sodium Chloride (Sodium Chloride Flush Syringe 10 Ml) 10 ml IV PRN PRN PRN Reason: LINE FLUSH Physical Examination - Physical Exam Narrative exam: Physical Exam: Constitutional: Alert, cooperative. No acute distress Head, Ears, Nose: Normocephalic, atraumatic. External ears, nose normal Eyes: Conjunctivae/corneas clear. No icterus. No ptosis. Neck: Supple, no meningeal signs Oral: dentition fair, no thrush Cardiovascular: S1, S2 normal. Respiratory: Good air entry, clear to auscultation bilaterally GI: Soft, non-tender; bowel sounds normal. No peritoneal signs Musculoskeletal: Left leg with swelling, warmth, fourth and fifth toes with wounds that are dressed, no tenderness. Bilateral feet with neuropathy. Skin: No rash or abscess Hem/Lymphatic: No palpable cervical or supraclavicular nodes. No lymphangitis Psych: Mood ok. Affect normal Neurological: Awake, alert, oriented. No gross abnormality - Constitutional Vitals: Vital Signs Temp Pulse Resp BP Pulse Ox 99.0 F 93 H 20 145/85 98 06/11/19 11:42 06/11/19 11:42 06/11/19 11:42 06/11/19 11:42 06/11/19 13:41 Temperature -Last 24 Hours Temperature 99.0 F Temperature 99.4 F Temperature 99.8 F Temperature 99.3 F Temperature 99 F Temperature 97.6 F Results - Labs CBC & Chem 7: 06/11/19 06:01 06/11/19 06:01 Labs: Abnormal lab results 06/10/19 06/11/19 06/11/19 Range/Units 18:08 06:01 06:01 Hct 34.8 L (35.5-45.6) % RDW 13.0 L (13.2-15.2) % Hartley % (Auto) 7.7 H (0.0-7.3) % Seg Neutrophils % 73.1 H (40.0-70.0) % Sodium 134 L (137-145) mmol/L Carbon Dioxide 21 L (22-30) mmol/L Glucose 280 H (75-100) mg/dL POC Glucose 273 H (70-105) Prealbumin 0.075 L (0.200-0.400) g/L 06/11/19 06/11/19 Range/Units 07:26 11:49 Hct (35.5-45.6) % RDW (13.2-15.2) % Hartley % (Auto) (0.0-7.3) % Seg Neutrophils % (40.0-70.0) % Sodium (137-145) mmol/L Carbon Dioxide (22-30) mmol/L Glucose (75-100) mg/dL POC Glucose 254 H 275 H (70-105) Prealbumin (0.200-0.400) g/L Assessment and Plan Cultures: 06/10/2019 blood culture: In process A/P: 53-year-old male with diabetes mellitus type 2, associated neuropathy, hypertension, obesity with longstanding left toe ulcerations and diabetic woun ds, now with: #Left leg cellulitis, left foot with acute osteomyelitis involving the fourth and fifth toes: Empiric antibiotics. Agree with surgical consult and plans for possible amputation. Expect surgical source control given the plans for transmetatarsal amputation of the fourth and fifth toes and MRI findings of osteomyelitis involving the phalanges. #Diabetes mellitus type 2, uncontrolled: Recommend tight glycemic control. Recs: Empiric IV Cefepime, Flagyl and Vancomycin. Maintain vancomycin trough between 10 to 20 mcg/mL Do not expect prolonged antibiotics given plans for surgical source control with amputation Edward Terry MD, FACP [facility] C: [phone] O: [phone] F: [phone]
[2019-06-11] MEDS: CEFEPIME/NS 2 GM/100 ML 2 GM/100 ML BAG IV SCH ×2 (15:45→21:59)
[2019-06-11] MEDS: metroNIDAZOLE/NS 500 MG/100 ML 500 MG/100 ML BAG IV SCH ×2 (18:45→22:01)
[2019-06-11] MEDS: INSULIN LISPRO 100 UNIT/ML SUB-Q SCH (22:34)
[2019-06-12] MEDS: VANCOMYCIN 1,750 MG in SODIUM CHLORIDE 0.9% 500 ML 500 ML IV SCH ×2 (04:39→16:51)
[2019-06-12] MEDS: metroNIDAZOLE/NS 500 MG/100 ML 500 MG/100 ML BAG IV SCH ×3 (06:19→21:34)
[2019-06-12] MEDS: CEFEPIME/NS 2 GM/100 ML 2 GM/100 ML BAG IV SCH ×3 (06:19→21:34)
[2019-06-12] MEDS: INSULIN LISPRO 100 UNIT/ML SUB-Q SCH ×4 (08:39→21:34)
[2019-06-12] MEDS: ACETAMINOPHEN 325 MG TAB PO PRN (08:58)
[2019-06-12] MEDS: HEPARIN 5,000 UNIT/1 ML VIAL SUB-Q SCH ×2 (10:13→21:33)
--- NOTE | 2019-06-12 11:22 | Progress Note ---
Assessment and Plan Cultures: 06/10/2019 blood culture: no growth thus far A/P: 53-year-old male with diabetes mellitus type 2, associated neuropathy, hypertension, obesity with longstanding left toe ulcerations and diabetic wounds , now with: #Left leg cellulitis, left foot with acute osteomyelitis involving the fourth and fifth toes: Empiric antibiotics. Agree with surgical consult and plans for possible amputation. Expect surgical source control given the plans for transmetatarsal amputation of the fourth and fifth toes and MRI findings of osteomyelitis involving the phalanges. #Diabetes mellitus type 2, uncontrolled: Recommend tight glycemic control. Recs: Continue empiric IV Cefepime, Flagyl and Vancomycin. Maintain vancomycin trough between 10 to 20 mcg/mL Do not expect prolonged antibiotics given plans for surgical source control with amputation Edward Terry MD, FACP [facility] C: [phone] O: [phone] F: [phone] Subjective Date of service: 06/12/19 Interval history: No new complaints. Left leg swelling still present. Low grade fever + Objective - Exam Narrative Exam: Physical Exam: Constitutional: Alert, cooperative. No acute distress Head, Ears, Nose: Normocephalic, atraumatic. External ears, nose normal Eyes: Conjunctivae/corneas clear. No icterus. No ptosis. Neck: Supple, no meningeal signs Cardiovascular: S1, S2 normal. Respiratory: Good air entry, clear to auscultation bilaterally GI: Soft, non-tender; bowel sounds normal. No peritoneal signs Musculoskeletal: Left leg with swelling, warmth, fourth and fifth toes with dressing, no tenderness. Skin: No rash or abscess Hem/Lymphatic: No palpable cervical or supraclavicular nodes. No lymphangitis Psych: Mood ok. Affect normal Neurological: Awake, alert, oriented. No gross abnormality. Bilateral feet with neuropathy. - Constitutional Vitals: Vital Signs Temp Pulse Resp BP Pulse Ox 100.7 F H 90 18 152/85 97 06/12/19 08:13 06/12/19 08:13 06/12/19 08:13 06/12/19 08:13 06/12/19 08:13 Temperature -Last 24 Hours Temperature 100.7 F Temperature 99.5 F Temperature 99.4 F Temperature 100.0 F Temperature 99.3 F Temperature 99.0 F - Labs CBC & Chem 7: 06/11/19 06:01 06/11/19 06:01 Labs: Abnormal lab results 06/11/19 06/11/19 06/11/19 Range/Units 11:49 16:39 22:40 POC Glucose 275 H 302 H 298 H (70-105) Hemoglobin A1c (4-6) % 06/12/19 06/12/19 Range/Units 05:16 08:26 POC Glucose 264 H (70-105) Hemoglobin A1c 11.1 H (4-6) %
--- NOTE | 2019-06-12 12:17 | Progress Note ---
Assessment and Plan Assessment and plan: Left lower extremity fifth MT infected diabetic wound/osteomyelitis. Continue wound care. IV antibiotics per ID. MRI confirms osteomyelitis of fifth toe. Podiatry consulted for possible amputation. Left lower extremity cellulitis. As above. Sepsis. Continue IV antibiotics as above. Follow-up cultures. Diabetes mellitus type 2, uncontrolled. Check hemoglobin A1c. Dietitian consult. 06/11podiatry has scheduled for left 4th and 5th toe TMA on 06/14/19 at 12:00. Patient will be continued on IV cefepime, Flagyl and vancomycin. We will maintain vancomycin trough between 10 to 20 mcg/ml History Interval history: No new issues overnight Hospitalist Physical - Constitutional Vitals: Temp Pulse Resp BP Pulse Ox 100.7 F H 90 18 152/85 97 06/12/19 08:13 06/12/19 08:13 06/12/19 08:13 06/12/19 08:13 06/12/19 08:13 General appearance: Present: mild distress, obese - EENT Eyes: Present: PERRL, EOM intact ENT: hearing intact, clear oral mucosa, dentition normal - Neck Neck: Present: supple, normal ROM - Respiratory Respiratory effort: normal Respiratory: bilateral: CTA - Cardiovascular Rhythm: regular Heart Sounds: Present: S1 & S2. Absent: gallop, rub - Extremities Extremities: no ischemia, No edema, Full ROM - Abdominal General gastrointestinal: soft, non-tender, non-distended, normal bowel sounds - Integumentary Integumentary: Present: clear, warm, dry - Neurologic Neurologic: CNII-XII intact, moves all extremities Results - Labs CBC & Chem 7: 06/11/19 06:01 06/11/19 06:01 Labs: Laboratory Last Values WBC 7.8 K/mm3 (4.5-11.0) 06/11/19 06:01 RBC 3.95 M/mm3 (3.65-5.03) 06/11/19 06:01 Hgb 12.0 gm/dl (11.8-15.2) 06/11/19 06:01 Hct 34.8 % (35.5-45.6) L 06/11/19 06:01 MCV 88 fl (84-94) 06/11/19 06:01 MCH 30 pg (28-32) 06/11/19 06:01 MCHC 34 % (32-34) 06/11/19 06:01 RDW 13.0 % (13.2-15.2) L 06/11/19 06:01 Plt Count 300 K/mm3 (140-440) 06/11/19 06:01 Lymph % (Auto) 17.5 % (13.4-35.0) 06/11/19 06:01 [place] % (Auto) 7.7 % (0.0-7.3) H 06/11/19 06:01 Eos % (Auto) 1.5 % (0.0-4.3) 06/11/19 06:01 Baso % (Auto) 0.2 % (0.0-1.8) 06/11/19 06:01 Lymph # 1.4 K/mm3 (1.2-5.4) 06/11/19 06:01 [place] # 0.6 K/mm3 (0.0-0.8) 06/11/19 06:01 Eos # 0.1 K/mm3 (0.0-0.4) 06/11/19 06:01 Baso # 0.0 K/mm3 (0.0-0.1) 06/11/19 06:01 Seg Neutrophils % 73.1 % (40.0-70.0) H 06/11/19 06:01 Seg Neutrophils # 5.7 K/mm3 (1.8-7.7) 06/11/19 06:01 ESR 74 mm/Hr (0-20) 06/10/19 11:43 Sodium 134 mmol/L (137-145) L 06/11/19 06:01 Potassium 3.9 mmol/L (3.6-5.0) 06/11/19 06:01 Chloride 100.1 mmol/L (98-107) 06/11/19 06:01 Carbon Dioxide 21 mmol/L (22-30) L 06/11/19 06:01 Anion Gap 17 mmol/L 06/11/19 06:01 BUN 10 mg/dL (9-20) 06/11/19 06:01 Creatinine 0.9 mg/dL (0.8-1.5) 06/11/19 06:01 Estimated GFR > 60 ml/min 06/11/19 06:01 BUN/Creatinine Ratio 11 % 06/11/19 06:01 Glucose 280 mg/dL (75-100) H 06/11/19 06:01 POC Glucose 231 (70-105) H 06/12/19 11:45 Hemoglobin A1c 11.1 % (4-6) H 06/12/19 05:16 Lactic Acid 1.40 mmol/L (0.7-2.0) 06/10/19 14:19 Calcium 8.6 mg/dL (8.4-10.2) 06/11/19 06:01 Total Bilirubin 0.80 mg/dL (0.1-1.2) 06/10/19 11:42 AST 21 units/L (5-40) 06/10/19 11:42 ALT 21 units/L (7-56) 06/10/19 11:42 Alkaline Phosphatase 105 units/L (35-129) 06/10/19 11:42 Total Protein 7.0 g/dL (6.3-8.2) 06/10/19 11:42 Albumin 3.4 g/dL (3.9-5) L 06/10/19 11:42 Albumin/Globulin Ratio 0.9 % 06/10/19 11:42 Prealbumin 0.075 g/L (0.200-0.400) L 06/11/19 06:01 Active Medications - Current Medications Current Medications: Generic Name Dose Route Start Last Admin Trade Name Freq PRN Reason Stop Dose Admin Acetaminophen 650 mg 06/10/19 15:01 06/12/19 08:58 Tylenol PO 650 mg Q4H PRN Administration Pain MILD(1-3)/Fever >100.5/TEAGUE Albuterol 2.5 mg 06/10/19 15:01 Proventil IH Q4HRT PRN Shortness Of Breath Heparin Sodium (Porcine) 5,000 unit 06/10/19 22:00 06/12/19 10:13 Heparin SUB-Q Not Given Q12HR MELLISSA Sodium Chloride 1,000 mls @ 100 mls/hr 06/10/19 15:15 06/11/19 20:20 Nacl 0.9% 1000 Ml IV 100 mls/hr DIRECT MELLISSA Administration Vancomycin HCl 1,750 mg/ 535 mls @ 333.333 mls/hr 06/11/19 04:00 06/12/19 04:39 Sodium Chloride IV 333.333 mls/hr Q12H MELLISSA Administration Cefepime HCl 2 gm in 100 mls @ 200 mls/hr 06/11/19 15:00 06/12/19 06:19 Cefepime/Ns 2 Gm/100 Ml IV 200 mls/hr Q8HR MELLISSA Administration Protocol Metronidazole 500 mg in 100 mls @ 100 mls/hr 06/11/19 15:00 06/12/19 06:19 Flagyl 500 Mg/100 Ml IV 100 mls/hr Q8HR MELLISSA Administration Protocol Insulin Human Lispro 0 unit 06/11/19 22:00 06/12/19 11:33 Humalog SUB-Q 3 unit ACHS MELLISSA Administration Protocol Sodium Chloride 10 ml 06/10/19 22:00 06/12/19 10:14 Sodium Chloride Flush Syringe 10 Ml IV Not Given BID MELLISSA Sodium Chloride 10 ml 06/10/19 15:01 Sodium Chloride Flush Syringe 10 Ml IV PRN PRN LINE FLUSH Nutrition/Malnutrition Assess - Dietary Evaluation Nutrition/Malnutrition Findings: Nutrition Notes Start: 06/11/19 14:56 Freq: Status: Active Protocol: Document 06/11/19 14:56 LM (Rec: 06/11/19 15:03 LM [email or web address]) Nutrition Notes 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 Pt ate 100% of tray. Pt statred he has gained about 10 lb. Pt stated he was eating BLOCKER HAND but had poor food choices. Provided DM diet education to pt. Pt eager to receive education. Burn Absent Trauma Absent GI Symptoms None Current % PO Good (75-100%) Minimum of two criteria No #2 Nutrition Diagnosis Increased nutrient needs ( specify in comment below) Comments: Protein Etiology wound healing As Evidenced by Signs and Symptoms pt with diabetic foot ulcer #1 Nutrition Diagnosis Food and nutrition-related knowledge deficit Etiology Pt not receiving DM diet education for many years As Evidenced by Signs and Symptoms Pt with diabetic foot ulcer, BG 280 Is patient on ventilator? No Is Patient Ambulatory and/or Out of Bed No REE-([facility]-confined to bed) 2366.460 Kcal/Kg value to use for calculation 19 Approximate Energy Requirements Using 2063 kcal/Kg Calculation Used for Recommendations Kcal/kg Additional Notes Protein: 118-143g (1.25-1.5g/ kg AdjBW 95kg) Fluid: 1 ml/kcal Nutrition Intervention Change Diet Order: Cardiac/consistent CHO Teaching Recipient Patient Learning Readiness Good Teaching Methods Discussion,Handout Response to Teaching Verbalize understanding Education Handouts Provided Carbohydrate Counting for People with DM Barriers to Learning No Barriers RD phone number provided Yes Patient aware of follow up options Yes Goal #1 wound healing Anticipated Discharge Needs: Consistent CHO/cardiac Follow-Up By: 06/18/19 Additional Comments F/U for stable intakes
[2019-06-12] MEDS: INSULIN NPH/REGULAR 70/30 INJ SUB-Q SCH (16:57)
[2019-06-12] MEDS: SODIUM CHLORIDE 0.9% 1000 ML 1,000 ML IV SCH (18:18)
[2019-06-12] MEDS ORDERED: INSULIN NPH/REGULAR 70/30 INJ SUB-Q SCH (20:00)
[2019-06-13] MEDS: VANCOMYCIN 1,750 MG in SODIUM CHLORIDE 0.9% 500 ML 500 ML IV SCH ×2 (03:38→16:33)
[2019-06-13] MEDS: CEFEPIME/NS 2 GM/100 ML 2 GM/100 ML BAG IV SCH ×3 (05:58→21:43)
[2019-06-13] MEDS: metroNIDAZOLE/NS 500 MG/100 ML 500 MG/100 ML BAG IV SCH ×3 (06:02→21:46)
[2019-06-13] MEDS: HEPARIN 5,000 UNIT/1 ML VIAL SUB-Q SCH ×2 (08:15→21:48)
[2019-06-13] MEDS: INSULIN NPH/REGULAR 70/30 INJ SUB-Q SCH ×2 (08:15→17:18)
[2019-06-13] MEDS: INSULIN LISPRO 100 UNIT/ML SUB-Q SCH ×4 (09:23→22:43)
--- NOTE | 2019-06-13 09:41 | Progress Note ---
Assessment and Plan Assessment and plan: Left lower extremity fifth MT infected diabetic wound/osteomyelitis. Continue wound care. IV antibiotics per ID. MRI confirms osteomyelitis of fifth toe. Podiatry consulted for possible amputation. Left lower extremity cellulitis. As above. Sepsis. Continue IV antibiotics as above. Follow-up cultures. Diabetes mellitus type 2, uncontrolled. Check hemoglobin A1c. Dietitian consult. 06/11podiatry has scheduled for left 4th and 5th toe TMA on 06/14/19 at 12:00. Patient will be continued on IV cefepime, Flagyl and vancomycin. We will maintain vancomycin trough between 10 to 20 mcg/ml 06/12patient with no issues overnight. Patient to be continued on IV cefepime, Flagyl and vancomycin. Follow-up labs in a.m. Surgery scheduled for tomorrow. History Interval history: No new issues overnight Hospitalist Physical - Constitutional Vitals: Temp Pulse Resp BP Pulse Ox 99.2 F 87 18 135/85 96 06/13/19 07:12 06/13/19 07:12 06/13/19 07:12 06/13/19 07:12 06/13/19 07:12 General appearance: Present: no acute distress, obese - EENT Eyes: Present: PERRL, EOM intact ENT: hearing intact, clear oral mucosa, dentition normal - Neck Neck: Present: supple, normal ROM - Respiratory Respiratory effort: normal Respiratory: bilateral: CTA - Cardiovascular Rhythm: regular Heart Sounds: Present: S1 & S2. Absent: gallop, rub - Extremities Extremities: no ischemia, No edema, Full ROM - Abdominal General gastrointestinal: soft, non-tender, non-distended, normal bowel sounds - Integumentary Integumentary: Present: clear, warm, dry - Neurologic Neurologic: CNII-XII intact, moves all extremities Results - Labs CBC & Chem 7: 06/11/19 06:01 06/11/19 06:01 Labs: Laboratory Last Values WBC 7.8 K/mm3 (4.5-11.0) 06/11/19 06:01 RBC 3.95 M/mm3 (3.65-5.03) 06/11/19 06:01 Hgb 12.0 gm/dl (11.8-15.2) 06/11/19 06:01 Hct 34.8 % (35.5-45.6) L 06/11/19 06:01 MCV 88 fl (84-94) 06/11/19 06:01 MCH 30 pg (28-32) 06/11/19 06:01 MCHC 34 % (32-34) 06/11/19 06:01 RDW 13.0 % (13.2-15.2) L 06/11/19 06:01 Plt Count 300 K/mm3 (140-440) 06/11/19 06:01 Lymph % (Auto) 17.5 % (13.4-35.0) 06/11/19 06:01 [place] % (Auto) 7.7 % (0.0-7.3) H 06/11/19 06:01 Eos % (Auto) 1.5 % (0.0-4.3) 06/11/19 06:01 Baso % (Auto) 0.2 % (0.0-1.8) 06/11/19 06:01 Lymph # 1.4 K/mm3 (1.2-5.4) 06/11/19 06:01 [place] # 0.6 K/mm3 (0.0-0.8) 06/11/19 06:01 Eos # 0.1 K/mm3 (0.0-0.4) 06/11/19 06:01 Baso # 0.0 K/mm3 (0.0-0.1) 06/11/19 06:01 Seg Neutrophils % 73.1 % (40.0-70.0) H 06/11/19 06:01 Seg Neutrophils # 5.7 K/mm3 (1.8-7.7) 06/11/19 06:01 ESR 74 mm/Hr (0-20) 06/10/19 11:43 Sodium 134 mmol/L (137-145) L 06/11/19 06:01 Potassium 3.9 mmol/L (3.6-5.0) 06/11/19 06:01 Chloride 100.1 mmol/L (98-107) 06/11/19 06:01 Carbon Dioxide 21 mmol/L (22-30) L 06/11/19 06:01 Anion Gap 17 mmol/L 06/11/19 06:01 BUN 10 mg/dL (9-20) 06/11/19 06:01 Creatinine 0.9 mg/dL (0.8-1.5) 06/11/19 06:01 Estimated GFR > 60 ml/min 06/11/19 06:01 BUN/Creatinine Ratio 11 % 06/11/19 06:01 Glucose 280 mg/dL (75-100) H 06/11/19 06:01 POC Glucose 153 (70-105) H 06/13/19 06:25 Hemoglobin A1c 11.1 % (4-6) H 06/12/19 05:16 Lactic Acid 1.40 mmol/L (0.7-2.0) 06/10/19 14:19 Calcium 8.6 mg/dL (8.4-10.2) 06/11/19 06:01 Total Bilirubin 0.80 mg/dL (0.1-1.2) 06/10/19 11:42 AST 21 units/L (5-40) 06/10/19 11:42 ALT 21 units/L (7-56) 06/10/19 11:42 Alkaline Phosphatase 105 units/L (35-129) 06/10/19 11:42 Total Protein 7.0 g/dL (6.3-8.2) 06/10/19 11:42 Albumin 3.4 g/dL (3.9-5) L 06/10/19 11:42 Albumin/Globulin Ratio 0.9 % 06/10/19 11:42 Prealbumin 0.075 g/L (0.200-0.400) L 06/11/19 06:01 Vancomycin Trough 11.4 ug/mL (5.0-20.0) 06/12/19 15:23 Active Medications - Current Medications Current Medications: Generic Name Dose Route Start Last Admin Trade Name Freq PRN Reason Stop Dose Admin Acetaminophen 650 mg 06/10/19 15:01 06/12/19 08:58 Tylenol PO 650 mg Q4H PRN Administration Pain MILD(1-3)/Fever >100.5/[place]UE Albuterol 2.5 mg 06/10/19 15:01 Proventil IH Q4HRT PRN Shortness Of Breath Heparin Sodium (Porcine) 5,000 unit 06/10/19 22:00 06/13/19 08:15 Heparin SUB-Q Not Given Q12HR MELLISSA Sodium Chloride 1,000 mls @ 100 mls/hr 06/10/19 15:15 06/12/19 18:18 Nacl 0.9% 1000 Ml IV 100 mls/hr DIRECT MELLISSA Administration Vancomycin HCl 1,750 mg/ 535 mls @ 333.333 mls/hr 06/11/19 04:00 06/13/19 03:38 Sodium Chloride IV 333.333 mls/hr Q12H MELLISSA Administration Cefepime HCl 2 gm in 100 mls @ 200 mls/hr 06/11/19 15:00 06/13/19 05:58 Cefepime/Ns 2 Gm/100 Ml IV 200 mls/hr Q8HR MELLISSA Administration Protocol Metronidazole 500 mg in 100 mls @ 100 mls/hr 06/11/19 15:00 06/13/19 06:02 Flagyl 500 Mg/100 Ml IV 100 mls/hr Q8HR MELLISSA Administration Protocol Insulin Human Isoph/Insulin Regular 35 unit 06/13/19 08:00 06/13/19 08:15 Humulin 70/30 SUB-Q 35 unit QDDIAB MELLISSA Administration Insulin Human Isoph/Insulin Regular 30 unit 06/12/19 17:00 06/12/19 16:57 Humulin 70/30 SUB-Q 30 unit QPMDIAB MELLISSA Administration Insulin Human Lispro 0 unit 06/11/19 22:00 06/13/19 09:23 Humalog SUB-Q Not Given ACHS MELLISSA Protocol Sodium Chloride 10 ml 06/10/19 22:00 06/12/19 21:44 Sodium Chloride Flush Syringe 10 Ml IV 10 ml BID MELLISSA Administration Sodium Chloride 10 ml 06/10/19 15:01 Sodium Chloride Flush Syringe 10 Ml IV PRN PRN LINE FLUSH Nutrition/Malnutrition Assess - Dietary Evaluation Nutrition/Malnutrition Findings: Nutrition Notes Start: 06/11/19 14:56 Freq: Status: Active Protocol: Document 06/11/19 14:56 LM (Rec: 06/11/19 15:03 LM [email or web address]) Nutrition Notes Need for Assessment generated from: MD Order,gun number Initial or Follow up Assessment Current Diagnosis Diabetes,Hypertension Other Pertinent Diagnosis diabetic foot ulcer, edema Current Diet Cardiac Labs/Tests BG 280 Na 134 Pertinent Medications NaCl at 100 ml/hr Height 6 ft Weight 108.59 kg [place] Body Weight (kg) 80.90 BMI 32.4 Intake Prior to Admission Good Subjective/Other Information MD consult for malnutrition, RN screen for skin risk. Pt ate 100% of tray. Pt statred he has gained about 10 lb. 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 Provided DM diet education to pt. Pt eager to receive education. Burn Absent Trauma Absent GI Symptoms None Current % PO Good (75-100%) Minimum of two criteria No #2 Nutrition Diagnosis Increased nutrient needs ( specify in comment below) Comments: Protein Etiology wound healing As Evidenced by Signs and Symptoms pt with diabetic foot ulcer #1 Nutrition Diagnosis Food and nutrition-related knowledge deficit Etiology Pt not receiving DM diet education for many years As Evidenced by Signs and Symptoms Pt with diabetic foot ulcer, BG 280 Is patient on ventilator? No Is Patient Ambulatory and/or Out of Bed No REE-([facility]-confined to bed) 2366.460 Kcal/Kg value to use for calculation 19 Approximate Energy Requirements Using 3 kcal/Kg Calculation Used for Recommendations Kcal/kg Additional Notes Protein: 118-143g (1.25-1.5g/ kg AdjBW 95kg) Fluid: 1 ml/kcal Nutrition Intervention Change Diet Order: Cardiac/consistent CHO Teaching Recipient Patient Learning Readiness Good Teaching Methods Discussion,Handout Response to Teaching Verbalize understanding Education Handouts Provided Carbohydrate Counting for People with DM Barriers to Learning No Barriers RD phone number provided Yes Patient aware of follow up options Yes Goal #1 wound healing Anticipated Discharge Needs: Consistent CHO/cardiac Follow-Up By: 06/18/19 Additional Comments F/U for stable intakes
[2019-06-13] MEDS: SODIUM CHLORIDE 0.9% 1000 ML 1,000 ML IV SCH (13:14)
[2019-06-13] MEDS: ACETAMINOPHEN 325 MG TAB PO PRN (21:48)
[2019-06-14] MEDS: VANCOMYCIN 1,750 MG in SODIUM CHLORIDE 0.9% 500 ML 500 ML IV SCH (04:06)
[2019-06-14] MEDS: SODIUM CHLORIDE 0.9% 1000 ML 1,000 ML IV SCH (04:07)
[2019-06-14] MEDS: metroNIDAZOLE/NS 500 MG/100 ML 500 MG/100 ML BAG IV SCH ×3 (07:28→22:21)
[2019-06-14] MEDS: CEFEPIME/NS 2 GM/100 ML 2 GM/100 ML BAG IV SCH (07:29)
[2019-06-14] MEDS: INSULIN LISPRO 100 UNIT/ML SUB-Q SCH ×4 (07:29→22:30)
[2019-06-14 08:21] LABS: Basophils # (Auto) 0.1 K/mm3 (0.0-0.1); Basophils % (Auto) 0.8 % (0.0-1.8); Eosinophils # (Auto) 0.2 K/mm3 (0.0-0.4); Eosinophils % (Auto) 1.7 % (0.0-4.3); Hematocrit 37.2 % (35.5-45.6); Hemoglobin 12.7 gm/dl (11.8-15.2); Lymphocytes # (Auto) 1.5 K/mm3 (1.2-5.4); Lymphocytes % (Auto) 15.3 % (13.4-35.0); Mean Corpuscular HGB Conc 34 % (32-34); Mean Corpuscular Volume 88 fl (84-94); Monocytes # (Auto) 0.7 K/mm3 (0.0-0.8); Monocytes % (Auto) 6.9 % (0.0-7.3); Platelet Count 392 K/mm3 (140-440); Red Blood Count 4.22 M/mm3 (3.65-5.03); Red Cell Distribution Width 12.9 % (13.2-15.2)
[2019-06-14 08:45] LABS: BUN/Creatinine Ratio 7; Blood Urea Nitrogen 5 mg/dL (9-20); Hemolysis Index 5
[2019-06-14] MEDS: ONDANSETRON 4 MG/2 ML INJ IV PRN ×2 (08:59→17:18)
--- NOTE | 2019-06-14 08:59 | Progress Note ---
Assessment and Plan Assessment and plan: Left lower extremity fifth MT infected diabetic wound/osteomyelitis. Continue wound care. IV antibiotics per ID. MRI confirms osteomyelitis of fifth toe. Podiatry consulted for possible amputation. Left lower extremity cellulitis. As above. Sepsis. Continue IV antibiotics as above. Follow-up cultures. Diabetes mellitus type 2, uncontrolled. Check hemoglobin A1c. Dietitian consult. 06/11podiatry has scheduled for left 4th and 5th toe TMA on 06/14/19 at 12:00. Patient will be continued on IV cefepime, Flagyl and vancomycin. We will maintain vancomycin trough between 10 to 20 mcg/ml 06/12patient with no issues overnight. Patient to be continued on IV cefepime, Flagyl and vancomycin. Follow-up labs in a.m. Surgery scheduled for tomorrow. 06/13patient with nausea and vomiting x4 last evening. No hematemesis. Zofran IV every 6 hours ordered. Patient scheduled for surgery TMA today. Continue IV antibiotics per infectious disease. History Interval history: No new issues overnight Hospitalist Physical - Constitutional Vitals: Temp Pulse Resp BP Pulse Ox 98.8 F 90 18 147/90 98 06/14/19 07:17 06/14/19 07:17 06/14/19 07:17 06/14/19 07:17 06/14/19 07:17 General appearance: Present: no acute distress, obese - EENT Eyes: Present: PERRL, EOM intact ENT: hearing intact, clear oral mucosa, dentition normal - Neck Neck: Present: supple, normal ROM - Respiratory Respiratory effort: normal Respiratory: bilateral: CTA - Cardiovascular Rhythm: regular Heart Sounds: Present: S1 & S2. Absent: gallop, rub - Extremities Extremities: no ischemia, No edema, Full ROM - Abdominal General gastrointestinal: soft, non-tender, non-distended, normal bowel sounds - Integumentary Integumentary: Present: clear, warm, dry - Neurologic Neurologic: CNII-XII intact, moves all extremities Results - Labs CBC & Chem 7: 06/14/19 08:09 06/14/19 08:09 Labs: Laboratory Last Values WBC 9.6 K/mm3 (4.5-11.0) 06/14/19 08:09 RBC 4.22 M/mm3 (3.65-5.03) 06/14/19 08:09 Hgb 12.7 gm/dl (11.8-15.2) 06/14/19 08:09 Hct 37.2 % (35.5-45.6) 06/14/19 08:09 MCV 88 fl (84-94) 06/14/19 08:09 MCH 30 pg (28-32) 06/14/19 08:09 MCHC 34 % (32-34) 06/14/19 08:09 RDW 12.9 % (13.2-15.2) L 06/14/19 08:09 Plt Count 392 K/mm3 (140-440) 06/14/19 08:09 Lymph % (Auto) 15.3 % (13.4-35.0) 06/14/19 08:09 [place] % (Auto) 6.9 % (0.0-7.3) 06/14/19 08:09 Eos % (Auto) 1.7 % (0.0-4.3) 06/14/19 08:09 Baso % (Auto) 0.8 % (0.0-1.8) 06/14/19 08:09 Lymph # 1.5 K/mm3 (1.2-5.4) 06/14/19 08:09 [place] # 0.7 K/mm3 (0.0-0.8) 06/14/19 08:09 Eos # 0.2 K/mm3 (0.0-0.4) 06/14/19 08:09 Baso # 0.1 K/mm3 (0.0-0.1) 06/14/19 08:09 Seg Neutrophils % 75.3 % (40.0-70.0) H 06/14/19 08:09 Seg Neutrophils # 7.2 K/mm3 (1.8-7.7) 06/14/19 08:09 ESR 74 mm/Hr (0-20) 06/10/19 11:43 Sodium 138 mmol/L (137-145) 06/14/19 08:09 Potassium 3.6 mmol/L (3.6-5.0) 06/14/19 08:09 Chloride 101.7 mmol/L (98-107) 06/14/19 08:09 Carbon Dioxide 20 mmol/L (22-30) L 03/09/20 08:09 Anion Gap 20 mmol/L 06/14/19 08:09 BUN 5 mg/dL (9-20) L 06/14/19 08:09 Creatinine 0.7 mg/dL (0.8-1.5) L 06/14/19 08:09 Estimated GFR > 60 ml/min 06/14/19 08:09 BUN/Creatinine Ratio 7 % 06/14/19 08:09 Glucose 130 mg/dL (75-100) H 06/14/19 08:09 POC Glucose 107 (70-105) H 06/14/19 07:53 Hemoglobin A1c 11.1 % (4-6) H 06/12/19 05:16 Lactic Acid 1.40 mmol/L (0.7-2.0) 06/10/19 14:19 Calcium 9.0 mg/dL (8.4-10.2) 06/14/19 08:09 Total Bilirubin 0.80 mg/dL (0.1-1.2) 06/10/19 11:42 AST 21 units/L (5-40) 06/10/19 11:42 ALT 21 units/L (7-56) 06/10/19 11:42 Alkaline Phosphatase 105 units/L (35-129) 06/10/19 11:42 Total Protein 7.0 g/dL (6.3-8.2) 06/10/19 11:42 Albumin 3.4 g/dL (3.9-5) L 06/10/19 11:42 Albumin/Globulin Ratio 0.9 % 06/10/19 11:42 Prealbumin 0.075 g/L (0.200-0.400) L 06/11/19 06:01 Vancomycin Trough 11.4 ug/mL (5.0-20.0) 06/12/19 15:23 Active Medications - Current Medications Current Medications: Generic Name Dose Route Start Last Admin Trade Name Freq PRN Reason Stop Dose Admin Acetaminophen 650 mg 06/10/19 15:01 06/13/19 21:48 Tylenol PO 650 mg Q4H PRN Administration Pain MILD(1-3)/Fever >100.5/[place] Albuterol 2.5 mg 06/10/19 15:01 Proventil IH Q4HRT PRN Shortness Of Breath Heparin Sodium (Porcine) 5,000 unit 06/10/19 22:00 06/13/19 21:48 Heparin SUB-Q 5,000 unit Q12HR MELLISSA Administration Sodium Chloride 1,000 mls @ 100 mls/hr 06/10/19 15:15 06/14/19 04:07 Nacl 0.9% 1000 Ml IV 100 mls/hr DIRECT MELLISSA Administration Vancomycin HCl 1,750 mg/ 535 mls @ 333.333 mls/hr 06/11/19 04:00 06/14/19 07:29 Sodium Chloride IV Infused Q12H MELLISSA Infusion Cefepime HCl 2 gm in 100 mls @ 200 mls/hr 06/11/19 15:00 06/14/19 07:29 Cefepime/Ns 2 Gm/100 Ml IV 200 mls/hr Q8HR MELLISSA Administration Protocol Metronidazole 500 mg in 100 mls @ 100 mls/hr 06/11/19 15:00 06/14/19 07:28 Flagyl 500 Mg/100 Ml IV 100 mls/hr Q8HR MELLISSA Administration Protocol Insulin Human Isoph/Insulin Regular 35 unit 06/13/19 08:00 06/13/19 08:15 Humulin 70/30 SUB-Q 35 unit QDDIAB MELLISSA Administration Insulin Human Isoph/Insulin Regular 30 unit 06/12/19 17:00 06/13/19 17:18 Humulin 70/30 SUB-Q 30 unit QPMDIAB MELLISSA Administration Insulin Human Lispro 0 unit 06/11/19 22:00 06/13/19 22:43 Humalog SUB-Q Not Given ACHS MELLISSA Protocol Ondansetron HCl 4 mg 06/14/19 08:24 Zofran IV Q6HR PRN Nausea And Vomiting Sodium Chloride 10 ml 06/10/19 22:00 06/14/19 04:10 Sodium Chloride Flush Syringe 10 Ml IV 10 ml BID MELLISSA Administration Sodium Chloride 10 ml 06/10/19 15:01 Sodium Chloride Flush Syringe 10 Ml IV PRN PRN LINE FLUSH Nutrition/Malnutrition Assess - Dietary Evaluation Nutrition/Malnutrition Findings: Nutrition Notes Start: 06/11/19 14:56 Freq: Status: Active Protocol: Document 06/11/19 14:56 LM (Rec: 06/11/19 15:03 LM [email or web address]) Nutrition Notes Need for Assessment generated from: MD Order,travel rn Initial or Follow up Assessment Current Diagnosis Diabetes,Hypertension Other Pertinent Diagnosis diabetic foot ulcer, edema Current Diet Cardiac Labs/Tests BG 280 Na 134 Pertinent Medications NaCl at 100 ml/hr Height 6 ft Weight 108.59 kg [place] Body Weight (kg) 80.90 BMI 32.4 Intake Prior to Admission Good Subjective/Other Information MD consult for malnutrition, RN screen for skin risk. Pt ate 100% of tray. Pt statred he has gained about 10 lb. 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 Provided DM diet education to pt. Pt eager to receive education. Burn Absent Trauma Absent GI Symptoms None Current % PO Good (75-100%) Minimum of two criteria No #2 Nutrition Diagnosis Increased nutrient needs ( specify in comment below) Comments: Protein Etiology wound healing As Evidenced by Signs and Symptoms pt with diabetic foot ulcer #1 Nutrition Diagnosis Food and nutrition-related knowledge deficit Etiology Pt not receiving DM diet education for many years As Evidenced by Signs and Symptoms Pt with diabetic foot ulcer, BG 280 Is patient on ventilator? No Is Patient Ambulatory and/or Out of Bed No REE-([facility]-confined to bed) 2366.460 Kcal/Kg value to use for calculation 19 Approximate Energy Requirements Using 3 kcal/Kg Calculation Used for Recommendations Kcal/kg Additional Notes Protein: 118-143g (1.25-1.5g/ kg AdjBW 95kg) Fluid: 1 ml/kcal Nutrition Intervention Change Diet Order: Cardiac/consistent CHO Teaching Recipient Patient Learning Readiness Good Teaching Methods Discussion,Handout Response to Teaching Verbalize understanding Education Handouts Provided Carbohydrate Counting for People with DM Barriers to Learning No Barriers RD phone number provided Yes Patient aware of follow up options Yes Goal #1 wound healing Anticipated Discharge Needs: Consistent CHO/cardiac Follow-Up By: 06/18/19 Additional Comments F/U for stable intakes
[2019-06-14] MEDS: INSULIN NPH/REGULAR 70/30 INJ SUB-Q SCH ×2 (09:19→19:37)
--- NOTE | 2019-06-14 10:47 | Anesthesia Consultation ---
<VIANNEY FROST - Last Filed: 06/14/19 10:43> Anesthesia Consult and Med Hx Date of service: 06/14/19 - Airway Anesthetic Teeth Evaluation: Poor (multiple missing teeth in the bottom), Dentures (upper) ROM Head & Neck: Adequate Mental/Hyoid Distance: Adequate Mallampati Class: Class II Intubation Access Assessment: Probably Good - Pre-Operative Health Status ASA Pre-Surgery Classification: ASA3 Proposed Anesthetic Plan: General - Cardiovascular System Hx Hypertension: Yes Hx Peripheral Vascular Disease: Yes (right 4, 5 toes gangrene) - Endocrine Hx Non-Insulin Dependent Diabetes: Yes - Other Systems Hx Obesity: Yes <PAULINE ADLER - Last Filed: 06/14/19 11:39> Anesthesia Consult and Med Hx - Additional Comments Anesthesia Medical History Comments: No hx anesthetic complications. Had some nausea and vomiting last night which has now resolved.
--- NOTE | 2019-06-14 10:50 | Anesthesia Day of Surgery ---
Anesthesia Day of Surgery - Day of Surgery Patient Examined: Yes Patient H&P Reviewed: Yes Patient is NPO: Yes
--- NOTE | 2019-06-14 11:09 | Progress Note ---
Assessment and Plan Cultures: 06/10/2019 blood culture: no growth thus far 06/11/2019 wound culture left 5th toe: GBS A/P: 53-year-old male with diabetes mellitus type 2, associated neuropathy, hypertension, obesity with longstanding left toe ulcerations and diabetic wounds, now with: #Left leg cellulitis, left foot with acute osteomyelitis involving the fourth and fifth toes: Agree with surgical consult and plans for possible amputation. Expect surgical source control given the plans for transmetatarsal amputation of the fourth and fifth toes and MRI findings of osteomyelitis involving the phalanges. #Diabetes mellitus type 2, uncontrolled: Recommend tight glycemic control. Recs: Cefepime and Vancomycin discontinued IV Ceftriaxone 2 gm daily started Continue Flagyl Do not expect prolonged antibiotics given plans for surgical source control with amputation, will likely discharge on PO antibiotics with outpatient follow up Edward Terry MD, FACP [facility] C: [phone] O: [phone] F: [phone] Subjective Date of service: 06/14/19 Interval history: No complaints. Left leg swelling gradually improving. No fever. at bedside. Awaiting surgery. Objective - Exam Narrative Exam: Physical Exam: Constitutional: Alert, cooperative. No acute distress Head, Ears, Nose: Normocephalic, atraumatic. External ears, nose normal Eyes: Conjunctivae/corneas clear. No icterus. No ptosis. Neck: Supple, no meningeal signs Cardiovascular: S1, S2 normal. Respiratory: Good air entry, clear to auscultation bilaterally GI: Soft, non-tender; bowel sounds normal. No peritoneal signs Musculoskeletal: Left leg with swelling, warmth, fourth and fifth toes with dressing, no tenderness. Skin: No rash or abscess Hem/Lymphatic: No palpable cervical or supraclavicular nodes. No lymphangitis Psych: Mood ok. Affect normal Neurological: Awake, alert, oriented. No gross abnormality. Bilateral feet with neuropathy. - Constitutional Vitals: Vital Signs Temp Pulse Resp BP Pulse Ox 98.8 F 90 18 147/90 98 06/14/19 07:17 06/14/19 07:17 06/14/19 07:17 06/14/19 07:17 06/14/19 07:17 Temperature -Last 24 Hours Temperature 98.8 F Temperature 98.2 F Temperature 98.6 F Temperature 99.2 F Temperature 99.3 F Temperature 98.8 F - Labs CBC & Chem 7: 06/14/19 08:09 06/14/19 08:09 Labs: Abnormal lab results 06/13/19 06/13/19 06/13/19 Range/Units 11:26 16:12 17:24 RDW (13.2-15.2) % Seg Neutrophils % (40.0-70.0) % Carbon Dioxide (22-30) mmol/L BUN (9-20) mg/dL Creatinine (0.8-1.5) mg/dL Glucose (75-100) mg/dL POC Glucose 167 H 62 L 167 H (70-105) 06/14/19 06/14/19 06/14/19 Range/Units 07:53 08:09 08:09 RDW 12.9 L (13.2-15.2) % Seg Neutrophils % 75.3 H (40.0-70.0) % Carbon Dioxide 20 L (22-30) mmol/L BUN 5 L (9-20) mg/dL Creatinine 0.7 L (0.8-1.5) mg/dL Glucose 130 H (75-100) mg/dL POC Glucose 107 H (70-105)
[2019-06-14] MEDS ORDERED: fentaNYL 100 MCG/2 ML INJ ONE (11:44)
[2019-06-14] MEDS ORDERED: LIDOCAINE MPF (2%) 20 MG/1 ML VIAL 5 ML ONE (11:44)
[2019-06-14] MEDS ORDERED: propofoL 200 MG/20 ML VIAL IV ONE (11:45)
[2019-06-14] MEDS ORDERED: MIDAZOLAM 2 MG/2 ML INJ IV NR (12:00)
[2019-06-14] MEDS ORDERED: HYDROmorphone 1 MG/1 ML INJ IV PRN (12:00)
[2019-06-14] MEDS ORDERED: GABAPENTIN 300 MG CAP PO NR (12:00)
[2019-06-14] MEDS ORDERED: LACTATED RINGERS 1,000 ML IV SCH (12:00)
[2019-06-14] MEDS ORDERED: CELECOXIB 200 MG CAP PO NR (12:00)
[2019-06-14] MEDS: HEPARIN 5,000 UNIT/1 ML VIAL SUB-Q SCH ×2 (12:20→22:24)
[2019-06-14] MEDS: cefTRIAXone/NS 2 GM/100 ML 2 GM/100 ML BAG IV SCH (12:25)
[2019-06-14] MEDS ORDERED: PHENYLEPHRINE/NS 1,000 MCG/10 ML SYRINGE (OR USE) IV ONE (13:21)
[2019-06-14] MEDS ORDERED: SODIUM CHLORIDE 0.9% IRR 1,500 ML BOTTLE IR ONE (13:32)
[2019-06-14] MEDS ORDERED: NEOMY 3.5 MG/BACIT 400 UNITS/POLY B 5000 UNITS/GM OINT PACKET TP ONE ×2 (13:55→14:10)
--- NOTE | 2019-06-14 13:59 | Post Operative Note ---
Pre-op diagnosis: Left 4th and 5th toe abscesses Post-op diagnosis: same Procedure: Left 4th and 5th TMA Anesthesia: other (LMA) Surgeon: CHA KAUR Estimated blood loss: 50-100ml Pathology: list (1) C&S 2) Left 4th and 5th toes 3) Left 4th and 5th metatarsal heads) Specimen disposition: to lab Condition: stable Disposition: PACU
--- NOTE | 2019-06-14 15:37 | Post Anesthesia Evaluation ---
- Post Anesthesia Evaluation Patient Participated: Yes Airway Patent: Yes Stable Respiratory Function: Yes Nausea/Vomiting: No Temp > 96.8F: Yes Pain Manageable: Yes Adequeate Hydration: Yes Anesthesia Complications: No
[2019-06-15] MEDS: metroNIDAZOLE/NS 500 MG/100 ML 500 MG/100 ML BAG IV SCH ×3 (05:44→21:37)
[2019-06-15] MEDS: INSULIN LISPRO 100 UNIT/ML SUB-Q SCH ×4 (08:21→21:43)
[2019-06-15] MEDS: INSULIN NPH/REGULAR 70/30 INJ SUB-Q SCH ×2 (08:32→17:25)
[2019-06-15] MEDS: SODIUM CHLORIDE 0.9% 1000 ML 1,000 ML IV SCH (08:32)
--- NOTE | 2019-06-15 09:41 | Procedure Note ---
Date of procedure: 06/14/19 Pre-op diagnosis: Abscess and osteomyelitis of left 4th and 5th toes Post-op diagnosis: same Procedure: TMA of left 4th and 5th toes Description of procedure: Pt was placed supine on the OR table. General anesthesia was administered. Left foot was prepped and draped. Left 4th and 5th toes were amputated with the Bovie throught the MTP joints. Pus encountered within the extensor tendon sheaths was collected for C&S. Hemostasis was obtained with the Bovie. Periosteum was elevated off of the distal metatarsal shafts. Left 4th and 5th metatarsal heads were amputated with a bone saw. Wound was irrigated. Wound was packed open with a dilute Betadine moistened Kerlix roll followed by Kerlix and Coban rolls about the foot. Pt tolerated the procedure well. Anesthesia: other (LMA) Surgeon: CHA KAUR Estimated blood loss: minimal Pathology: list (1) C&S 2) Left 4th and 5th toes and metatarsal heads) Specimen disposition: to lab Condition: stable Disposition: PACU
[2019-06-15] MEDS: cefTRIAXone/NS 2 GM/100 ML 2 GM/100 ML BAG IV SCH (10:41)
[2019-06-15] MEDS: HEPARIN 5,000 UNIT/1 ML VIAL SUB-Q SCH ×2 (10:41→21:37)
--- NOTE | 2019-06-15 13:36 | Progress Note ---
Assessment and Plan Assessment and plan: Left lower extremity fifth MT infected diabetic wound/osteomyelitis. Continue wound care. IV antibiotics per ID. MRI confirms osteomyelitis of fifth toe. Podiatry consulted for possible amputation. Left lower extremity cellulitis. As above. Sepsis. Continue IV antibiotics as above. Follow-up cultures. Diabetes mellitus type 2, uncontrolled. Check hemoglobin A1c. Dietitian consult. 06/11podiatry has scheduled for left 4th and 5th toe TMA on 06/14/19 at 12:00. Patient will be continued on IV cefepime, Flagyl and vancomycin. We will maintain vancomycin trough between 10 to 20 mcg/ml 06/12patient with no issues overnight. Patient to be continued on IV cefepime, Flagyl and vancomycin. Follow-up labs in a.m. Surgery scheduled for tomorrow. 06/13patient with nausea and vomiting x4 last evening. No hematemesis. Zofran IV every 6 hours ordered. Patient scheduled for surgery TMA today. Continue IV antibiotics per infectious disease. 06/14 patient feels better. Mild pain at surgical site. s/p TMA left 4th and 5th toes 06/13 History Interval history: Mild pain surgical site left foot Hospitalist Physical - Physical exam Narrative exam: GEN: Not in acute distress, lying in bed,obese HEENT: Normocephalic, atraumatic, Neck: supple, No JVD Lungs: Clear , no crackles, heart;S1 and S2 reg, no murmurs, rubs or gallop Abd:soft, non tender, non distended, normal bowel sounds Ext: Left foot covered with dressing. s/p TMA left 4th and 5th toes. No clubbing, no cyanosis, Neuro: Awake,alert, oriented X 3, no focal neurological signs - Constitutional Vitals: Temp Pulse Resp BP Pulse Ox 97.8 F 84 20 134/81 95 06/15/19 07:30 06/15/19 07:30 06/15/19 07:30 06/15/19 07:30 06/15/19 07:30 General appearance: Present: no acute distress, obese Results - Labs CBC & Chem 7: 06/14/19 08:09 06/14/19 08:09 Labs: Laboratory Last Values WBC 9.6 K/mm3 (4.5-11.0) 06/14/19 08:09 RBC 4.22 M/mm3 (3.65-5.03) 06/14/19 08:09 Hgb 12.7 gm/dl (11.8-15.2) 06/14/19 08:09 Hct 37.2 % (35.5-45.6) 06/14/19 08:09 MCV 88 fl (84-94) 06/14/19 08:09 MCH 30 pg (28-32) 06/14/19 08:09 MCHC 34 % (32-34) 06/14/19 08:09 RDW 12.9 % (13.2-15.2) L 06/14/19 08:09 Plt Count 392 K/mm3 (140-440) 06/14/19 08:09 Lymph % (Auto) 15.3 % (13.4-35.0) 06/14/19 08:09 [place] % (Auto) 6.9 % (0.0-7.3) 06/14/19 08:09 Eos % (Auto) 1.7 % (0.0-4.3) 06/14/19 08:09 Baso % (Auto) 0.8 % (0.0-1.8) 06/14/19 08:09 Lymph # 1.5 K/mm3 (1.2-5.4) 06/14/19 08:09 Conway # 0.7 K/mm3 (0.0-0.8) 06/14/19 08:09 Eos # 0.2 K/mm3 (0.0-0.4) 06/14/19 08:09 Baso # 0.1 K/mm3 (0.0-0.1) 06/14/19 08:09 Seg Neutrophils % 75.3 % (40.0-70.0) H 06/14/19 08:09 Seg Neutrophils # 7.2 K/mm3 (1.8-7.7) 06/14/19 08:09 ESR 74 mm/Hr (0-20) 06/10/19 11:43 Sodium 138 mmol/L (137-145) 06/14/19 08:09 Potassium 3.6 mmol/L (3.6-5.0) 06/14/19 08:09 Chloride 101.7 mmol/L (98-107) 06/14/19 08:09 Carbon Dioxide 20 mmol/L (22-30) L 06/14/19 08:09 Anion Gap 20 mmol/L 06/14/19 08:09 BUN 5 mg/dL (9-20) L 06/14/19 08:09 Creatinine 0.7 mg/dL (0.8-1.5) L 06/14/19 08:09 Estimated GFR > 60 ml/min 06/14/19 08:09 BUN/Creatinine Ratio 7 % 06/14/19 08:09 Glucose 130 mg/dL (75-100) H 06/14/19 08:09 POC Glucose 204 (70-105) H 06/15/19 11:36 Hemoglobin A1c 11.1 % (4-6) H 06/12/19 05:16 Lactic Acid 1.40 mmol/L (0.7-2.0) 06/10/19 14:19 Calcium 9.0 mg/dL (8.4-10.2) 06/14/19 08:09 Total Bilirubin 0.80 mg/dL (0.1-1.2) 06/10/19 11:42 AST 21 units/L (5-40) 06/10/19 11:42 ALT 21 units/L (7-56) 06/10/19 11:42 Alkaline Phosphatase 105 units/L (35-129) 06/10/19 11:42 Total Protein 7.0 g/dL (6.3-8.2) 06/10/19 11:42 Albumin 3.4 g/dL (3.9-5) L 06/10/19 11:42 Albumin/Globulin Ratio 0.9 % 06/10/19 11:42 Prealbumin 0.075 g/L (0.200-0.400) L 06/11/19 06:01 Vancomycin Trough 11.4 ug/mL (5.0-20.0) 06/12/19 15:23 Active Medications - Current Medications Current Medications: Generic Name Dose Route Start Last Admin Trade Name Freq PRN Reason Stop Dose Admin Acetaminophen 650 mg 06/10/19 15:01 06/13/19 21:48 Tylenol PO 650 mg Q4H PRN Administration Pain MILD(1-3)/Fever >100.5/TEAGUE Albuterol 2.5 mg 06/10/19 15:01 Proventil IH Q4HRT PRN Shortness Of Breath Heparin Sodium (Porcine) 5,000 unit 06/10/19 22:00 06/15/19 10:41 Heparin SUB-Q 5,000 unit Q12HR MELLISSA Administration Sodium Chloride 1,000 mls @ 100 mls/hr 06/10/19 15:15 06/15/19 08:32 Nacl 0.9% 1000 Ml IV 100 mls/hr DIRECT MELLISSA Administration Metronidazole 500 mg in 100 mls @ 100 mls/hr 06/11/19 15:00 06/15/19 05:44 Flagyl 500 Mg/100 Ml IV 100 mls/hr Q8HR MELLISSA Administration Protocol Ceftriaxone Sodium 2 gm in 100 mls @ 200 mls/hr 06/14/19 13:00 06/15/19 10:41 Rocephin/Ns 2 Gm/100 Ml IV 200 mls/hr Q24HR MELLISSA Administration Protocol Lactated Ringer's 1,000 mls @ 100 mls/hr 06/14/19 12:00 06/14/19 12:20 Lactated Ringers IV 100 mls/hr DIRECT MELLISSA Administration Insulin Human Isoph/Insulin Regular 35 unit 06/13/19 08:00 06/15/19 08:32 Humulin 70/30 SUB-Q 35 unit QDDIAB MELLISSA Administration Insulin Human Isoph/Insulin Regular 30 unit 06/12/19 17:00 06/14/19 19:37 Humulin 70/30 SUB-Q Not Given QPMDIAB MELLISSA Insulin Human Lispro 0 unit 06/11/19 22:00 06/15/19 11:53 Humalog SUB-Q 3 unit ACHS MELLISSA Administration Protocol Ondansetron HCl 4 mg 06/14/19 08:24 06/14/19 17:18 Zofran IV 4 mg Q6HR PRN Administration Nausea And Vomiting Sodium Chloride 10 ml 06/10/19 22:00 06/15/19 10:42 Sodium Chloride Flush Syringe 10 Ml IV Not Given BID MELLISSA Sodium Chloride 10 ml 06/10/19 15:01 Sodium Chloride Flush Syringe 10 Ml IV PRN PRN LINE FLUSH Nutrition/Malnutrition Assess - Dietary Evaluation Nutrition/Malnutrition Findings: Nutrition Notes Start: 06/11/19 14:56 Freq: Status: Active Protocol: Document 06/11/19 14:56 LM (Rec: 06/11/19 15:03 LM [email or web address]) Nutrition Notes Need for Assessment generated from: MD Order,dyer assistant Initial or Follow up Assessment Current Diagnosis Diabetes,Hypertension Other Pertinent Diagnosis diabetic foot ulcer, edema Current Diet Cardiac Labs/Tests BG 280 Na 134 Pertinent Medications NaCl at 100 ml/hr Height 6 ft Weight 108.59 kg [place] Body Weight (kg) 80.90 BMI 32.4 Intake Prior to Admission Good Subjective/Other Information MD consult for malnutrition, RN screen for skin risk. Pt ate 100% of tray. Pt statred he has gained about 10 lb. Pt stated he was eating [employer] but had poor food choices. Provided DM diet education to pt. Pt eager to receive education. Burn Absent Trauma Absent GI Symptoms None Current % PO Good (75-100%) Minimum of two criteria No #2 Nutrition Diagnosis Increased nutrient needs ( specify in comment below) Comments: Protein Etiology wound healing As Evidenced by Signs and Symptoms pt with diabetic foot ulcer #1 Nutrition Diagnosis Food and nutrition-related knowledge deficit Etiology Pt not receiving DM diet education for many years As Evidenced by Signs and Symptoms Pt with diabetic foot ulcer, BG 280 Is patient on ventilator? No Is Patient Ambulatory and/or Out of Bed No REE-([place]-confined to bed) [phone] Kcal/Kg value to use for calculation 19 Approximate Energy Requirements Using 3 kcal/Kg Calculation Used for Recommendations Kcal/kg Additional Notes Protein: 118-143g (1.25-1.5g/ kg AdjBW 95kg) Fluid: 1 ml/kcal Nutrition Intervention Change Diet Order: Cardiac/consistent CHO Teaching Recipient Patient Learning Readiness Good Teaching Methods Discussion,Handout Response to Teaching Verbalize understanding Education Handouts Provided Carbohydrate Counting for People with DM Barriers to Learning No Barriers RD phone number provided Yes Patient aware of follow up options Yes Goal #1 wound healing Anticipated Discharge Needs: Consistent CHO/cardiac Follow-Up By: 06/18/19 Additional Comments F/U for stable intakes
--- NOTE | 2019-06-15 15:17 | Progress Note ---
Assessment and Plan Cultures: 06/10/2019 blood culture: no growth thus far 06/11/2019 wound culture left 5th toe: GBS A/P: 53-year-old male with diabetes mellitus type 2, associated neuropathy, hypertension, obesity with longstanding left toe ulcerations and diabetic wounds, now with: #Left leg cellulitis, left foot with acute osteomyelitis involving the fourth and fifth toes: Patient is now s/p TMA of left 4th and 5th toes on 06/14/2019. Expect surgical source control given MRI findings of osteomyelitis involving the phalanges only. #Diabetes mellitus type 2, uncontrolled: Recommend tight glycemic control. Recs: Continue IV Ceftriaxone 2 gm daily and Flagyl When cleared for discharge by surgery, would do PO Keflex 750 mg QID x 14 days ID clinic follow up (will be arranged by us) Edward Terry MD, FACP [facility] C: [phone] O: [phone] F: [phone] Subjective Date of service: 06/15/19 Interval history: No complaints. Left leg swelling gradually improving. Had surgery yesterday. Objective - Exam Narrative Exam: Physical Exam: Constitutional: Alert, cooperative. No acute distress Head, Ears, Nose: Normocephalic, atraumatic. External ears, nose normal Eyes: Conjunctivae/corneas clear. No icterus. No ptosis. Neck: Supple, no meningeal signs Cardiovascular: S1, S2 normal. Respiratory: Good air entry, clear to auscultation bilaterally GI: Soft, non-tender; bowel sounds normal. No peritoneal signs Musculoskeletal: Left foot in dressing. Left leg with swelling, warmth i mproving. Skin: No rash or abscess Hem/Lymphatic: No palpable cervical or supraclavicular nodes. No lymphangitis Psych: Mood ok. Affect normal Neurological: Awake, alert, oriented. No gross abnormality. Bilateral feet with neuropathy. - Constitutional Vitals: Vital Signs Temp Pulse Resp BP Pulse Ox 97.8 F 84 20 134/81 95 06/15/19 07:30 06/15/19 07:30 06/15/19 07:30 06/15/19 07:30 06/15/19 07:30 Temperature -Last 24 Hours Temperature 97.8 F Temperature 98.0 F Temperature 97.6 F Temperature 97.9 F - Labs CBC & Chem 7: 06/14/19 08:09 06/14/19 08:09 Labs: Abnormal lab results 06/14/19 06/14/19 06/15/19 Range/Units 16:26 21:40 06:42 POC Glucose 161 H 281 H 212 H (70-105) 06/15/19 Range/Units 11:36 POC Glucose 204 H (70-105)
[2019-06-16] MEDS: SODIUM CHLORIDE 0.9% 1000 ML 1,000 ML IV SCH ×2 (00:10→10:24)
[2019-06-16] MEDS: metroNIDAZOLE/NS 500 MG/100 ML 500 MG/100 ML BAG IV SCH ×3 (05:21→22:19)
[2019-06-16] MEDS: INSULIN LISPRO 100 UNIT/ML SUB-Q SCH ×3 (08:34→23:24)
[2019-06-16] MEDS: INSULIN NPH/REGULAR 70/30 INJ SUB-Q SCH ×2 (10:23→23:24)
[2019-06-16] MEDS: cefTRIAXone/NS 2 GM/100 ML 2 GM/100 ML BAG IV SCH (10:24)
[2019-06-16] MEDS: HEPARIN 5,000 UNIT/1 ML VIAL SUB-Q SCH ×2 (10:24→22:17)
--- NOTE | 2019-06-16 14:25 | Progress Note ---
Assessment and Plan Cultures: 06/10/2019 blood culture: no growth thus far 06/11/2019 wound culture left 5th toe: GBS surgical wound culture: in process A/P: 53-year-old male with diabetes mellitus type 2, associated neuropathy, hype rtension, obesity with longstanding left toe ulcerations and diabetic wounds, now with: #Left leg cellulitis, left foot with acute osteomyelitis involving the fourth and fifth toes: Patient is now s/p TMA of left 4th and 5th toes on 06/14/2019. Expect surgical source control given MRI findings of osteomyelitis involving the phalanges only. #Diabetes mellitus type 2, uncontrolled: Recommend tight glycemic control. Recs: Continue IV Ceftriaxone 2 gm daily and Flagyl When cleared for discharge by surgery, would do PO Keflex 750 mg QID x 14 days ID clinic follow up (materials scheduler notified) Edward Terry MD, FACP [facility] C: [phone] O: [phone] F: [phone] Subjective Date of service: 06/16/19 Interval history: No complaints. Left leg swelling gradually improving. Remains afebrile. Objective - Exam Narrative Exam: Physical Exam: Constitutional: Alert, cooperative. No acute distress Head, Ears, Nose: Normocephalic, atraumatic. External ears, nose normal Eyes: Conjunctivae/corneas clear. No icterus. No ptosis. Neck: Supple, no meningeal signs Cardiovascular: S1, S2 normal. Respiratory: Good air entry, clear to auscultation bilaterally GI: Soft, non-tender; bowel sounds normal. No peritoneal signs Musculoskeletal: Left foot in dressing. Left leg with swelling, warmth improving. Skin: No rash or abscess Hem/Lymphatic: No palpable cervical or supraclavicular nodes. No lymphangitis Psych: Mood ok. Affect normal Neurological: Awake, alert, oriented. No gross abnormality. Bilateral feet with neuropathy. - Constitutional Vitals: Vital Signs Temp Pulse Resp BP Pulse Ox 98.8 F 88 20 123/90 97 06/16/19 12:00 06/16/19 12:00 06/16/19 12:00 06/16/19 12:00 06/16/19 12:00 Temperature -Last 24 Hours Temperature 98.8 F Temperature 98 F Temperature 98.7 F Temperature 98.7 F Temperature 98.9 F Temperature 98.3 F - Labs CBC & Chem 7: 06/14/19 08:09 06/14/19 08:09 Labs: Abnormal lab results 06/15/19 06/15/19 06/16/19 Range/Units 16:37 20:58 07:31 POC Glucose 167 H 125 H 111 H (70-105) 06/16/19 Range/Units 11:13 POC Glucose 175 H (70-105)
[2019-06-16] MEDS ORDERED: hydrALAZINE 20 MG/1 ML INJ IV PRN (15:53)
--- NOTE | 2019-06-16 16:27 | Progress Note ---
Assessment and Plan Assessment and plan: Left lower extremity fifth MT infected diabetic wound/osteomyelitis. Continue wound care. IV antibiotics per ID. MRI confirms osteomyelitis of fifth toe. Podiatry consulted for possible amputation. Left lower extremity cellulitis. As above. Sepsis. Continue IV antibiotics as above. Follow-up cultures. Diabetes mellitus type 2, uncontrolled. Check hemoglobin A1c. Dietitian consult. 06/11podiatry has scheduled for left 4th and 5th toe TMA on 06/14/19 at 12:00. Patient will be continued on IV cefepime, Flagyl and vancomycin. We will maintain vancomycin trough between 10 to 20 mcg/ml 06/12patient with no issues overnight. Patient to be continued on IV cefepime, Flagyl and vancomycin. Follow-up labs in a.m. Surgery scheduled for tomorrow. 06/13patient with nausea and vomiting x4 last evening. No hematemesis. Zofran IV every 6 hours ordered. Patient scheduled for surgery TMA today. Continue IV antibiotics per infectious disease. 06/14 patient feels better. Mild pain at surgical site. s/p TMA left 4th and 5th toes 06/13 06/15 Less pain at surgical site. Hopefully dc home tomorrow on oral Antibiotics. BP elevated. he denies history of hypertension. History Interval history: Mild pain surgical site left foot No fever Hospitalist Physical - Physical exam Narrative exam: GEN: Not in acute distress, lying in bed,obese HEENT: Normocephalic, atraumatic, Neck: supple, No JVD Lungs: Clear , no crackles, heart;S1 and S2 reg, no murmurs, rubs or gallop Abd:soft, non tender, non distended, normal bowel sounds Ext: Left foot covered with dressing. s/p TMA left 4th and 5th toes. No clubbing, no cyanosis, Neuro: Awake,alert, oriented X 3, no focal neurological signs - Constitutional Vitals: Temp Pulse Resp BP Pulse Ox 97 F L 85 20 161/99 97 06/16/19 15:41 06/16/19 15:41 06/16/19 15:41 06/16/19 15:41 06/16/19 15:41 General appearance: Present: no acute distress, obese Results - Labs CBC & Chem 7: 06/14/19 08:09 06/14/19 08:09 Labs: Laboratory Last Values WBC 9.6 K/mm3 (4.5-11.0) 06/14/19 08:09 RBC 4.22 M/mm3 (3.65-5.03) 06/14/19 08:09 Hgb 12.7 gm/dl (11.8-15.2) 06/14/19 08:09 Hct 37.2 % (35.5-45.6) 06/14/19 08:09 MCV 88 fl (84-94) 06/14/19 08:09 MCH 30 pg (28-32) 06/14/19 08:09 MCHC 34 % (32-34) 06/14/19 08:09 RDW 12.9 % (13.2-15.2) L 06/14/19 08:09 Plt Count 392 K/mm3 (140-440) 06/14/19 08:09 Lymph % (Auto) 15.3 % (13.4-35.0) 06/14/19 08:09 Hernando % (Auto) 6.9 % (0.0-7.3) 06/14/19 08:09 Eos % (Auto) 1.7 % (0.0-4.3) 06/14/19 08:09 Baso % (Auto) 0.8 % (0.0-1.8) 06/14/19 08:09 Lymph # 1.5 K/mm3 (1.2-5.4) 06/14/19 08:09 Hernando # 0.7 K/mm3 (0.0-0.8) 06/14/19 08:09 Eos # 0.2 K/mm3 (0.0-0.4) 06/14/19 08:09 Baso # 0.1 K/mm3 (0.0-0.1) 06/14/19 08:09 Seg Neutrophils % 75.3 % (40.0-70.0) H 06/14/19 08:09 Seg Neutrophils # 7.2 K/mm3 (1.8-7.7) 06/14/19 08:09 ESR 74 mm/Hr (0-20) 06/10/19 11:43 Sodium 138 mmol/L (137-145) 06/14/19 08:09 Potassium 3.6 mmol/L (3.6-5.0) 06/14/19 08:09 Chloride 101.7 mmol/L (98-107) 06/14/19 08:09 Carbon Dioxide 20 mmol/L (22-30) L 06/14/19 08:09 Anion Gap 20 mmol/L 06/14/19 08:09 BUN 5 mg/dL (9-20) L 06/14/19 08:09 Creatinine 0.7 mg/dL (0.8-1.5) L 06/14/19 08:09 Estimated GFR > 60 ml/min 06/14/19 08:09 BUN/Creatinine Ratio 7 % 06/14/19 08:09 Glucose 130 mg/dL (75-100) H 06/14/19 08:09 POC Glucose 96 (70-105) 06/16/19 16:19 Hemoglobin A1c 11.1 % (4-6) H 06/12/19 05:16 Lactic Acid 1.40 mmol/L (0.7-2.0) 06/10/19 14:19 Calcium 9.0 mg/dL (8.4-10.2) 06/14/19 08:09 Total Bilirubin 0.80 mg/dL (0.1-1.2) 06/10/19 11:42 AST 21 units/L (5-40) 06/10/19 11:42 ALT 21 units/L (7-56) 06/10/19 11:42 Alkaline Phosphatase 105 units/L (35-129) 06/10/19 11:42 Total Protein 7.0 g/dL (6.3-8.2) 06/10/19 11:42 Albumin 3.4 g/dL (3.9-5) L 06/10/19 11:42 Albumin/Globulin Ratio 0.9 % 06/10/19 11:42 Prealbumin 0.075 g/L (0.200-0.400) L 06/11/19 06:01 Vancomycin Trough 11.4 ug/mL (5.0-20.0) 06/12/19 15:23 Clement/IV: Voiding Method Urinal IV Catheter Type [Left Hand] INT / Saline Lock IV Catheter Type [Right Peripheral IV Forearm] IV Catheter Type [Right Peripheral IV Antecubital] Active Medications - Current Medications Current Medications: Generic Name Dose Route Start Last Admin Trade Name Freq PRN Reason Stop Dose Admin Acetaminophen 650 mg 06/10/19 15:01 06/13/19 21:48 Tylenol PO 650 mg Q4H PRN Administration Pain MILD(1-3)/Fever >100.5/TEAGUE Albuterol 2.5 mg 06/10/19 15:01 Proventil IH Q4HRT PRN Shortness Of Breath Heparin Sodium (Porcine) 5,000 unit 06/10/19 22:00 06/16/19 10:24 Heparin SUB-Q 5,000 unit Q12HR MELLISSA Administration Hydralazine HCl 10 mg 06/16/19 15:53 Apresoline IV Q4HR PRN If SBP>160 or DBP>110 Sodium Chloride 1,000 mls @ 100 mls/hr 06/10/19 15:15 06/16/19 10:24 Nacl 0.9% 1000 Ml IV 100 mls/hr DIRECT MELLISSA Administration Metronidazole 500 mg in 100 mls @ 100 mls/hr 06/11/19 15:00 06/16/19 14:28 Flagyl 500 Mg/100 Ml IV 100 mls/hr Q8HR MELLISSA Administration Protocol Ceftriaxone Sodium 2 gm in 100 mls @ 200 mls/hr 06/14/19 13:00 06/16/19 10:24 Rocephin/Ns 2 Gm/100 Ml IV 200 mls/hr Q24HR MELLISSA Administration Protocol Lactated Ringer's 1,000 mls @ 100 mls/hr 06/14/19 12:00 06/14/19 12:20 Lactated Ringers IV 100 mls/hr DIRECT MELLISSA Administration Insulin Human Isoph/Insulin Regular 35 unit 06/13/19 08:00 06/16/19 10:23 Humulin 70/30 SUB-Q 35 unit QDDIAB MELLISSA Administration Insulin Human Isoph/Insulin Regular 30 unit 06/12/19 17:00 06/15/19 17:25 Humulin 70/30 SUB-Q 30 unit QPMDIAB MELLISSA Administration Insulin Human Lispro 0 unit 06/11/19 22:00 06/16/19 11:43 Humalog SUB-Q 2 unit ACHS MELLISSA Administration Protocol Ondansetron HCl 4 mg 06/14/19 08:24 06/14/19 17:18 Zofran IV 4 mg Q6HR PRN Administration Nausea And Vomiting Sodium Chloride 10 ml 06/10/19 22:00 06/16/19 10:36 Sodium Chloride Flush Syringe 10 Ml IV Not Given BID MELLISSA Sodium Chloride 10 ml 06/10/19 15:01 Sodium Chloride Flush Syringe 10 Ml IV PRN PRN LINE FLUSH Nutrition/Malnutrition Assess - Dietary Evaluation Nutrition/Malnutrition Findings: Nutrition Notes Start: 06/11/19 14:56 Freq: Status: Active Protocol: Document 06/11/19 14:56 LM (Rec: 06/11/19 15:03 LM [id number]) Nutrition Notes Need for Assessment generated from: MD Order,distance education coordinator Initial or Follow up Assessment Current Diagnosis Diabetes,Hypertension Other Pertinent Diagnosis diabetic foot ulcer, edema Current Diet Cardiac Labs/Tests BG 280 Na 134 Pertinent Medications NaCl at 100 ml/hr Height 6 ft Weight 108.59 kg [place] Body Weight (kg) 80.90 BMI 32.4 Intake Prior to Admission Good Subjective/Other Information MD consult for malnutrition, RN screen for skin risk. Pt ate 100% of tray. Pt statred he has gained about 10 lb. Pt stated he was eating [employer] but had poor food choices. Provided DM diet education to pt. Pt eager to receive education. Burn Absent Trauma Absent GI Symptoms None Current % PO Good (75-100%) Minimum of two criteria No #2 Nutrition Diagnosis Increased nutrient needs ( specify in comment below) Comments: Protein Etiology wound healing As Evidenced by Signs and Symptoms pt with diabetic foot ulcer #1 Nutrition Diagnosis Food and nutrition-related knowledge deficit Etiology Pt not receiving DM diet education for many years As Evidenced by Signs and Symptoms Pt with diabetic foot ulcer, BG 280 Is patient on ventilator? No Is Patient Ambulatory and/or Out of Bed No REE-([facility]-confined to bed) 2366.460 Kcal/Kg value to use for calculation 19 Approximate Energy Requirements Using 3 kcal/Kg Calculation Used for Recommendations Kcal/kg Additional Notes Protein: 118-143g (1.25-1.5g/ kg AdjBW 95kg) Fluid: 1 ml/kcal Nutrition Intervention Change Diet Order: Cardiac/consistent CHO Teaching Recipient Patient Learning Readiness Good Teaching Methods Discussion,Handout Response to Teaching Verbalize understanding Education Handouts Provided Carbohydrate Counting for People with DM Barriers to Learning No Barriers RD phone number provided Yes Patient aware of follow up options Yes Goal #1 wound healing Anticipated Discharge Needs: Consistent CHO/cardiac Follow-Up By: 06/18/19 Additional Comments F/U for stable intakes
[2019-06-17] MEDS: INSULIN LISPRO 100 UNIT/ML SUB-Q SCH ×3 (08:20→12:34)
[2019-06-17] MEDS: metroNIDAZOLE/NS 500 MG/100 ML 500 MG/100 ML BAG IV SCH (08:53)
[2019-06-17] MEDS: HEPARIN 5,000 UNIT/1 ML VIAL SUB-Q SCH ×2 (08:54→09:02)
[2019-06-17] MEDS: cefTRIAXone/NS 2 GM/100 ML 2 GM/100 ML BAG IV SCH (10:16)
--- NOTE | 2019-06-17 11:28 | Discharge Summary ---
Providers - Providers Date of Admission: 06/12/19 12:32 Date of discharge: 06/17/19 Attending physician: ARIANA GILMORE 06/10/19 15:00 Consult to Physician [CONS] Urgent Comment: Consulting Provider: LEIGH MCDONALD Physician Instructions: Reason For Exam: Diabetic foot, cellulitis 06/10/19 15:14 Consult to Wound/ET Nurse [CONS] Routine Reason For Exam: wound eval L diabetic toe ulcer 06/11/19 08:58 Consult to Dietitian/Nutrition [CONS] Routine Physician Instructions: Reason For Exam: Reason for Consult: Malnutrition 06/11/19 10:40 Consult to Physician [CONS] Routine Comment: please eval for amp Consulting Provider: CHA LITTLE Physician Instructions: Reason For Exam: left pinky toe osteomyelitis, large wound. 06/11/19 10:41 Consult to Physician [CONS] Routine Comment: Consulting Provider: DARIUSZ HARTMAN Physician Instructions: Reason For Exam: osteomyelitis 06/14/19 13:59 Consult to Wound/ET Nurse [CONS] Routine Reason For Exam: left foot wound - post-op 06/15/19 09:26 Physical Therapy Evaluation and Treat [CONS] Routine Comment: Reason For Exam: S/P TMA Primary care physician: POLISHER NUMERAL Hospitalization Condition: Fair Disposition: DC/[place]-06 HOME UNDER HOME [facility] Exam - Constitutional Vitals: Temp Pulse Resp BP Pulse Ox 97.9 F 84 17 159/98 94 06/17/19 07:05 06/17/19 07:05 06/17/19 10:00 06/17/19 07:05 06/17/19 07:05 Plan Activity: advance as tolerated Diet: low fat, low cholesterol, low salt, diabetic Durable Medical Equipment Needed Upon Discharge: Walker-Rolling Plan of Treatment: 1.Follow up with PCP in 1 week. 2.Follow up with JORDIN Bocanegra in 1 week 3.Follow up with Dr. Little, Surgeon in 1 week. Follow up with: PRIMARY CARE, [Primary Care Provider] - 3-5 Days
[2019-06-17 11:47] VITALS: BP 161/94
[2019-06-17] MEDS: INSULIN NPH/REGULAR 70/30 INJ SUB-Q SCH (12:34)
== END 2019-06-17 13:15 | disposition home health service (06) | DRG 854 ==
LOC: ED 10:23 → 3A 15:01 → 3B-SURG 16:20 → OBSVTOIN 06-12 12:32
PROVIDERS: ADMIT Internal Medicine; ATTEND Internal Medicine
PROC: 0Y6W0Z0 Detachment at Left 4th Toe, Complete, Open Approach (ICD-10-PCS; principal; 2019-06-14)
PROC: 0Y6Y0Z0 Detachment at Left 5th Toe, Complete, Open Approach (ICD-10-PCS; 2019-06-14)
DX: A41.9 Sepsis, unspecified organism (principal); L03.116 Cellulitis of left lower limb; E87.1 Hypo-osmolality and hyponatremia; M86.9 Osteomyelitis, unspecified; E46 Unspecified protein-calorie malnutrition; L02.612 Cutaneous abscess of left foot; E11.628 Type 2 diabetes mellitus with other skin complications; E11.42 Type 2 diabetes mellitus with diabetic polyneuropathy; E11.621 Type 2 diabetes mellitus with foot ulcer; L97.529 Non-pressure chronic ulcer of other part of left foot with unspecified severity; I10 Essential (primary) hypertension; E11.65 Type 2 diabetes mellitus with hyperglycemia; L03.032 Cellulitis of left toe; E66.9 Obesity, unspecified; Z91.19 Patient's noncompliance with other medical treatment and regimen; Z79.4 Long term (current) use of insulin; Z83.3 Family history of diabetes mellitus; Z82.49 Family history of ischemic heart disease and other diseases of the circulatory system; Z68.32 Body mass index [BMI] 32.0-32.9, adult; Z71.3 Dietary counseling and surveillance
CPT/HCPCS: 36415; 80048; 80053; 80202; 82140; 82962; 83036; 84134; 85025; 85652; 87040; 87075; 87116; 88302; 88304; 88305; 88311; 90686; 94640; 96361; 96365; 96375; G0378; A6250; A9577; J0692; J0696; J1644; J1815; J2250; J2270; J2370; J2405; J2543; J2704; J3010; J3370; J7030; J7040; J7120

== ENCOUNTER 2019-06-23 09:45 | Emergency (ER) | payer SELFPAY ==
[2019-06-23 09:51] VITALS: BP 141/86
[2019-06-23] MEDS ORDERED: cephALEXin 500 MG CAP PO ONE (11:36)
--- NOTE | 2019-06-23 11:38 | Emergency Department Report ---
ED Recheck HPI - General Chief Complaint: Extremity Problem,Nontraumatic Stated Complaint: SURGICAL WOUND BLEEDING Time Seen by Provider: 06/23/19 10:57 Source: patient Mode of arrival: Ambulatory Limitations: No Limitations - History of Present Illness Initial Comments: Mr. Bueno is a very pleasant 53-year-old -[place] male that comes to the emergency room today complaining of bleeding of his left surgical site. He is status post amputation of toes of his left foot last week by Dr. Little. He states that he went to bed last night and everything was fine. This was the first night he slept in the bed prior to now he has been sleeping on the couch. Patient thinks that he might of hit his foot on the bed post. Resting was taken down in the ER and he has minimal serosanguineous drainage of the wound. There is no purulent drainage. The tissue is pink with no todd or black necrotic skin. Patient is ambulatory and nontoxic without fever. Patient is diabetic and taking his insulin as prescribed. He has a follow-up appointment with Dr. Little next week. Patient states that he has been unable to get his Keflex filled due to cost. I have changed the dose of the Keflex and given the patient a good Rx card which will equate to $12 for his prescription which she will go and get filled. Wound has been redressed with a nonadhesive dressing. Patient has a surgical shoe. I have placed him on crutches to minimize rocking of the foot that might cause more drainage. He has been instructed to elevate his foot when at rest. He will follow-up with his surgeon as scheduled. MD Complaint: wound re-check -: Sudden Initial Visit For: other Context: other Associated Symptoms: none - Related Data Previous Rx's Medication Instructions Recorded Last Taken Type Cephalexin [Keflex] 750 mg PO Q6H 14 Days #56 capsule 06/17/19 Unknown Rx Insulin NPH/Regular [NovoLIN 70/30] 30 unit SUB-Q QPMDIAB units 06/17/19 Unknown Rx Insulin NPH/Regular [NovoLIN 70/30] 35 unit SUB-Q QDDIAB units 06/17/19 Unknown Rx cephALEXin [Keflex] 500 mg PO Q6HR #40 capsule 06/23/19 Unknown Rx Allergies Allergy/AdvReac Type Severity Reaction Status Date / Time No Known Allergies Allergy Unverified 06/10/19 10:24 ED Review of Systems ROS: Stated complaint: SURGICAL WOUND BLEEDING Other details as noted in HPI Comment: All other systems reviewed and negative ED Past Medical Hx - Past Medical History Previous Medical History?: Yes Hx Hypertension: Yes Hx Diabetes: Yes - Surgical History Past Surgical History?: Yes Additional Surgical History: Left toe amputation - Family History Family history: no significant - Social History Smoking Status: Never Smoker Substance Use Type: None - Medications Home Medications: Home Medications Medication Instructions Recorded Confirmed Last Taken Type Cephalexin [Keflex] 750 mg PO Q6H 14 Days #56 capsule 06/17/19 Unknown Rx Insulin NPH/Regular [NovoLIN 70/30] 30 unit SUB-Q QPMDIAB units 06/17/19 Unknown Rx Insulin NPH/Regular [NovoLIN 70/30] 35 unit SUB-Q QDDIAB units 06/17/19 Unknown Rx cephALEXin [Keflex] 500 mg PO Q6HR #40 capsule 06/23/19 Unknown Rx ED Physical Exam - General Limitations: No Limitations General appearance: alert, in no apparent distress - Head Head exam: Present: atraumatic, normocephalic - Eye Eye exam: Present: normal appearance - ENT ENT exam: Present: mucous membranes moist - Neck Neck exam: Present: normal inspection - Respiratory Respiratory exam: Present: normal lung sounds bilaterally. Absent: respiratory distress - Cardiovascular Cardiovascular Exam: Present: regular rate, normal rhythm. Absent: systolic murmur, diastolic murmur, rubs, gallop - GI/Abdominal GI/Abdominal exam: Present: soft, normal bowel sounds - Rectal Rectal exam: Present: deferred - Extremities Exam Extremities exam: Present: normal inspection - Expanded Lower Extremity Exam Left Foot/Toe exam: Present: normal inspection, amputation. Absent: full ROM, tenderness, swelling, abrasion, laceration, ecchymosis, deformity, crepidus, dislocation, erythema, puncture wound, foreign body, calcaneal tenderness, tenderness at base of 5th metatarsal, nail avulsion, subungual hematoma - Back Exam Back exam: Present: normal inspection - Neurological Exam Neurological exam: Present: alert, oriented X3 - Psychiatric Psychiatric exam: Present: normal affect, normal mood - Skin Skin exam: Present: warm, dry, intact, normal color. Absent: rash ED Course Vital Signs 06/23/19 09:49 Temperature 97.9 F Pulse Rate 95 H Respiratory 16 Rate Blood Pressure 141/86 O2 Sat by Pulse 97 Oximetry ED Recheck MDM - Core Measures Measure Exclusions: not indicated - Differential Diagnosis Wound Recheck - Medical Decision Making Patient's foot is warm. He has palpable DP and PT pulses bilaterally. Wound as described in HPI. Wound was dressed with nonadhesive dressing. Patient placed on crutches. Patient being discharged home with a Keflex prescription that was rewritten due to cost of his prior prescription. He has a follow-up appointment scheduled with his surgeon. There is no evidence of infection of the foot. There is no purulent drainage. The wound bed is pink. There is no necrotic or todd tissue. There is no malodorous drainage. Vital Signs 06/23/19 09:49 Temperature 97.9 F Pulse Rate 95 H Respiratory 16 Rate Blood Pressure 141/86 O2 Sat by Pulse 97 Oximetry Critical care attestation.: If time is entered above; I have spent that time in minutes in the direct care of this critically ill patient, excluding procedure time. ED Disposition Clinical Impression: Draining postoperative wound Disposition: DC-01 TO HOME OR SELFCARE Is pt being admited?: No Does the pt Need Aspirin: No Condition: Stable Prescriptions: cephALEXin [Keflex] 500 mg PO Q6HR #40 capsule Referrals: JUANCARLOS RIVERA MD [Primary Care Provider] - 3-5 Days Time of Disposition: 11:36
== END 2019-06-23 12:02 | disposition home or self-care (01) ==
LOC: ED 09:45
DX: T81.30XA Disruption of wound, unspecified, initial encounter (principal); I10 Essential (primary) hypertension; E11.9 Type 2 diabetes mellitus without complications; Z79.899 Other long term (current) drug therapy; Z79.4 Long term (current) use of insulin; Z98.890 Other specified postprocedural states; X58.XXXA Exposure to other specified factors, initial encounter
CPT/HCPCS: 99283